=== PATIENT | male | born 1990 | race Caucasian/White ===

== ENCOUNTER → 2016-12-28 | Outpatient (CLI) | payer OTHER ==
--- NOTE | 2016-12-29 09:32 | MR ---
EXAMINATION: MRI of the right knee HISTORY: Derangement COMPARISON: 06/29/2016 TECHNIQUE: Multiplanar and multisequence images obtained of the right knee without contrast. FINDINGS: The patellar and quadriceps tendons are intact. The ACL and the PCL appear intact. There i s a large osteochondral defect noted within the lateral tibial plateau measuring approximately 1 x 1 .3 cm. There is likely a resulting loose body within the anterior joint space along the posterior as pect of Hoffa's fat pad. There is also adjacent cartilaginous defect measuring 1.8 cm posterior to t he defect which has from the underlying cortex but not displaced. Underlying subchondral e charles is noted. The body of the lateral meniscus is completely degenerated with preservation of a por tion of the posterior horn. The medial meniscus appears intact. The medial and lateral collateral li gament complexes appear intact. There is a trace joint effusion without significant Noel's cyst. IMPRESSION: 1. Large, grade 4, osteochondral defect along the lateral femoral condyle with a dislodged portion r esulting in a loose body within the anterior joint space. 2. Complete degeneration of the body of the lateral meniscus. 3. Small joint effusion.
== END ==
LOC: MW.MRI 13:59
PROVIDERS: ATTEND General Practice
DX: M23.3 Other meniscus derangements (principal); M25.461 Effusion, right knee
CPT/HCPCS: 73721-26-RT; 73721-RT

== ENCOUNTER 2017-01-10 09:22 | Day surgery (SDC) | payer OTHER ==
[~2017-01-10 09:22] MED LIST: Acetaminophen/HYDROcodone 325-5 MG Tab PO PRN; Lactated Ringers 1,000 ML IV SCH; Lidocaine 1% 50 ML MDV ONE; ceFAZolin 2 GM in Premix Bag 1 BAG IV SCH
--- NOTE | 2017-01-10 10:16 | PCM.PREANE ---
Preanesthetic Assessment - Anesthesia/Transfusion/Family Hx Anesthesia History: Prior Anesthesia Without Reaction Transfusion History: No Prior Transfusion(s) - Review of Systems General: No Symptoms Pulmonary: No Symptoms Cardiovascular: No Symptoms Gastrointestinal: No symptoms Neurological: No Symptoms Other: Reports: None - Physical Assessment NPO Status Date: 01/09/17 NPO Status Time: 22:00 O2 Sat by Pulse Oximetry: 97 Respiratory Rate: 18 Vital Signs: Last Vital Signs Temp 36.7 C 01/10/17 09:42 Pulse 68 01/10/17 09:42 Resp 18 01/10/17 09:42 BP 135/77 01/10/17 09:42 Pulse Ox 97 01/10/17 09:42 Height: 1.7 m Weight: 120.202 kg ASA Class: 2 Mental Status: Alert & Oriented x3 Airway Class: Mallampati = 2 Dentition: Reports: Normal Dentition ROM/Head Extension: Full Lungs: Clear to auscultation, Normal respiratory effort Cardiovascular: Regular Rate, Regular Rhythm - Allergies Allergies/Adverse Reactions: Allergies Allergy/AdvReac Type Severity Reaction Status Date / Time No Known Allergies Allergy Verified 01/08/17 11:06 - Anesthesia Plan Pre-Op Medication Ordered: None - Acknowledgements Anesthesia Type Planned: General Anesthesia Pt an Appropriate Candidate for the Planned Anesthesia: Yes Alternatives and Risks of Anesthesia Discussed w Pt/Guardian: Yes Pt/Guardian Understands and Agrees with Anesthesia Plan: Yes PreAnesthesia Questionnaire HEENT History: Reports: Allergic rhinitis Cardiovascular History: Reports: None Respiratory History: Reports: Asthma Gastrointestinal History: Reports: None Genitourinary History: Reports: None Musculoskeletal History: Reports: Fracture Other Musculoskeletal History: neck, clavicle, skull, right wrist, patella Neurological History: Reports: Concussion, Head trauma Other Neuro History: hx of fx skull, crushed C5 vertebrate Psychiatric History: Reports: None Endocrine/Metabolic History: Reports: Obesity/BMI 30+ Hematologic History: Reports: None Immunologic History: Reports: None Oncologic (Cancer) History: Reports: None Dermatologic History: Reports: None - Infectious Disease History Infectious Disease History: Reports: None - Past Surgical History Head Surgeries/Procedures: Reports: None HEENT Surgical History: Reports: None Cardiovascular Surgical History: Reports: None Respiratory Surgical History: Reports: None GI Surgical History: Reports: Appendectomy Male Surgical History: Reports: None Endocrine Surgical History: Reports: None Neurological Surgical History: Reports: C-Spine Other Neurological Surgeries/Procedures: fusion C4-5 Musculoskeletal Surgical History: Reports: Arthroscopic knee Other Musculoskeletal Surgeries/Procedures:: Right ankle arthroscopic Oncologic Surgical History: Reports: None Dermatological Surgical History: Reports: None - SUBSTANCE USE Smoking Status *Q: Former Smoker Tobacco Use Within Last Twelve Months: Cigarettes, Smokeless Tobacco Second Hand Smoke Exposure: No Days Per Week of Alcohol Use: 7 Number of Drinks Per Day: 4 Total Drinks Per Week: 28 Recreational Drug Use History: Yes Recreational Drug Type: Reports: Marijuana/Hashish - HOME MEDS Home Medications: Home Meds Fluticasone/Salmeterol [Advair 250-50] 250 mg INH BID 06/13/15 [History] Albuterol [Proventil HFA] 2 puff INH ASDIRECTED 08/13/15 [History] - CURRENT (IN HOUSE) MEDS Current Meds: Current Medications Hydrocodone Bitart/Acetaminophen ([place] 325-5 Mg) 1 - 2 tab PO Q4H PRN PRN Reason: Pain Lactated Ringer's (Ringers, Lactated) 1,000 mls @ 100 mls/hr IV ASDIRECTED [facility] Last Admin: 01/10/17 09:45 Dose: 100 mls/hr Cefazolin Sodium/Dextrose 2 gm (/ Premix) 50 mls @ 100 mls/hr IV ONCALL KENN Discontinued Medications Lidocaine HCl (Xylocaine 1%) Confirm Administered Dose 50 ml .ROUTE .STK-MED ONE Stop: 01/10/17 07:33 Preanesthetic Assessment - ANESTHESIA/TRANSFUSION/FAMILY HX Family History of Anesthesia Reaction: No - PHYSICAL ASSESSMENT O2 Sat by Pulse Oximetry: 97 RR: 18 Vital Signs: Last Vital Signs Temp 36.7 C 01/10/17 09:42 Pulse 68 01/10/17 09:42 Resp 18 01/10/17 09:42 BP 135/77 01/10/17 09:42 Pulse Ox 97 01/10/17 09:42 Height: 1.7 m Weight: 120.202 kg NPO Status Date: 01/09/17 NPO Status Time: 22:00 - ALLERGIES Allergies/Adverse Reactions: Allergies Allergy/AdvReac Type Severity Reaction Status Date / Time No Known Allergies Allergy Verified 01/08/17 11:06
[2017-01-10] MEDS ORDERED: Midazolam 1 MG/ML 2 ML SDV ONE (10:25)
[2017-01-10] MEDS ORDERED: fentaNYL 250 MCG/5 ML SDV ONE (10:25)
[2017-01-10] MEDS ORDERED: Lidocaine 2% 5 ML SDV ONE (10:25)
[2017-01-10] MEDS ORDERED: Propofol 200 MG/20 ML SDV ONE ×2 (10:25→12:31)
--- NOTE | 2017-01-10 11:21 | PCM.OPNOTE ---
- General Post-Op/Procedure Note Date of Surgery/Procedure: 01/10/17 Operative Procedure(s): R knee arthroscopy with excision of loose bodies (25mm x 20mm), (11mm x 15mm), (1mm x 4mm) and partial med/lat menisectomies Post-Op Diagnosis: R knee OCD lateral femoral condyle, med/lat meniscus tear, loose bodies Anesthesia Technique: General LMA Primary Surgeon: Carlie Moran Caregivers Homecare: Nela Ellis in mLs: 5 Condition: Good Free Text/Narrative:: tt=50 min #[id number]
[2017-01-10] MEDS ORDERED: HYDROmorphone 2 MG/ML Syringe IVPUSH ONE (12:09)
--- NOTE | 2017-01-10 13:17 | PCM.POSTAN ---
POST ANESTHESIA ASSESSMENT - MENTAL STATUS Mental Status: oriented, somnolent (Will be transported to [facility] soon.) - RESPIRATORY Respiratory Status: respiratory rate WNL, airway patent, O2 saturation stable - CARDIOVASCULAR CV Status: pulse rate WNL, blood pressure stable - GASTROINTESTINAL GI Status: no symptoms - POST OP HYDRATION Hydration Status: adequate & stable
[2017-01-10] MEDS: fentaNYL 100 MCG/2 ML SDV IVPUSH PRN ×2 (13:39→13:46)
[2017-01-10 15:16] VITALS: BP 137/77
--- NOTE | 2017-01-10 22:34 | OR ---
SURGEON: Carlie Moran MD DATE OF PROCEDURE: 01/10/2017 PREOPERATIVE DIAGNOSES: 1. Right knee osteochondral defect, lateral femoral condyle. 2. Right knee loose body. 3. Right knee lateral meniscus tear. POSTOPERATIVE DIAGNOSES: 1. Right knee lateral meniscus tear. 2. Right knee medial meniscus tear. 3. Right knee loose bodies (25 mm x 20 mm, 11 mm x 15 mm and 1 mm x 4 mm). PROCEDURES: Right knee arthroscopy with: 1. Excision of loose bodies. 2. Partial lateral and medial meniscectomies. CRIMP SETTER: Nela Ellis MD, PGY-2. ANESTHESIA: General. ESTIMATED BLOOD LOSS: 5 mL. TOURNIQUET TIME: 50 minutes. COMPLICATIONS: None. DVT PROPHYLAXIS: Not indicated. IMPLANTS USED: None. BRIEF HISTORY: Bharat is a 26-year-old male, who has had complaint of persistent right knee pain. He previously underwent a right knee arthroscopy with a partial meniscectomy in 2012. I do not have records from that time. The patient states that he was told he did have some damage to his cartilage in the lateral compartment. He had returned to full activity and did not have any knee pain until a work related injury on December 15, 2016. He did have an MRI, which did show an osteochondral defect of the lateral femoral condyle with evidence of a loose body. Tear of the lateral meniscus was also noted. He was having mechanical symptoms including locking. At that time, I recommended a right knee arthroscopy. I did discuss with him the option of removing the loose body versus fixation if it was amenable to fixation. The risks and goals of procedure were discussed with the patient and documented preoperatively. He agreed to proceed. DESCRIPTION OF PROCEDURE: The patient was properly identified and brought to the operating room. He was transferred from the OR cart and placed on the operating table in supine position. General anesthesia was administered. After adequate anesthesia was obtained, a well-padded tourniquet was applied to the right lower extremity. The right lower extremity was then prepped in standard fashion using ChloraPrep solution. It was then sterilely draped. A time-out was performed to ensure correct site and procedure. Preoperative antibiotics were given. The surgical site had been marked preoperatively. An Esmarch was used to exsanguinate the right lower extremity and the tourniquet was inflated to 250 mmHg. A lateral portal arthrotomy was established. Blunt trocar and cannula were introduced into the suprapatellar pouch. Camera, inflow, and outflow were assembled. The patellofemoral joint was visualized. No significant degenerative changes were noted. The patella appeared to track centrally. I extended down the lateral and medial gutter. No loose bodies were identified. I then entered the medial compartment. A medial portal arthrotomy was established. A blunt probe was inserted. The meniscus was probed. He was found to have a nondisplaced full-thickness tear of the posterior horn of the medial meniscus. This appeared unstable. Using a combination of biters and shaver, this was resected back to a stable remnant. The joint surfaces were inspected. 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 Minor degenerative changes were noted along the medial femoral condyle. I then entered the notch. Both the ACL and PCL were visualized and probed. They were covered with synovium, however, they were able to be probed and the ACL insertion onto the lateral femoral condyle was intact. Finally, I did the lateral compartment. A large loose body was present along the anterior aspect of the lateral compartment. This was inspected and found to be completely devoid of bony. A grasper was used to remove this from the medial portal. The lateral compartment was again entered. Extensive degenerative fraying of the entire lateral meniscus was noted. There was a large osteochondral defect present along the weightbearing portion of the lateral femoral condyle. There was a loose body noted along the posterior aspect of the defect. This was extensively probed. The loose body showed a very small amount of subchondral bone. The loose body also appeared to be smooth around the edges and did not josé nicely into the underlying bone. It is possible that this had been loose for a period of time. It did have some soft tissue attachment posteriorly, which allowed it not to become a free-floating body. Since there was no significant subchondral bone noted on the fragment, I did not feel that fixation of this would give adequate healing. The loose body also did not josé in nicely to the defect. I elected to remove the loose body. This was again removed without difficulty. The osteochondral defect was then inspected. It measured approximately 35 mm in medial to lateral width with 30 mm anterior to posterior width. It was approximately 10 mm in depth. There was some loose cartilage along the periphery and this was smoothed with the shaver. The lateral tibial plateau was also inspected. This showed diffuse grade 2 to grade 3 chondromalacia. The lateral meniscus was then probed. Extensive degenerative fraying was noted posteriorly. He had a very thin rim of remaining meniscus, this was unstable and degenerative. Using a combination of biters and shaver, a partial lateral meniscectomy was performed. The probe was again inserted and the remainder of the meniscus appeared intact. There was a very thin rim remaining along the posterior horn. Instruments were then removed from the knee. The portal sites were closed with 3-0 nylon. Lidocaine 1% was injected along the portal tracts. Xeroform gauze was placed over the wound and a bulky dressing was applied. The tourniquet was then deflated. He was awakened from his anesthetic and transferred back to the operating room cart. He was brought to recovery room in stable condition. All needle and sponge counts were correct. IWONA / MEHRAN /[id number]
== END 2017-01-10 15:10 | disposition home or self-care (01) ==
LOC: MW.SDS 09:22
PROVIDERS: ATTEND Orthopaedic Surgery
PROC: 0SBC4ZZ Excision of Right Knee Joint, Percutaneous Endoscopic Approach (ICD-10-PCS; principal; 2017-01-10)
PROC: 0SBC4ZZ Excision of Right Knee Joint, Percutaneous Endoscopic Approach (ICD-10-PCS; 2017-01-10)
DX: S83.241A Other tear of medial meniscus, current injury, right knee, initial encounter (principal); S83.281A Other tear of lateral meniscus, current injury, right knee, initial encounter; M94.261 Chondromalacia, right knee; M95.8 Other specified acquired deformities of musculoskeletal system; J45.909 Unspecified asthma, uncomplicated; E66.9 Obesity, unspecified; Z87.891 Personal history of nicotine dependence; Z79.51 Long term (current) use of inhaled steroids; Z79.899 Other long term (current) drug therapy; Z98.890 Other specified postprocedural states; Z90.49 Acquired absence of other specified parts of digestive tract; Z68.41 Body mass index [BMI] 40.0-44.9, adult
CPT/HCPCS: 29880; A9270; J2250; J3010; J7120; 01400; 88304; 88311; J2704

== ENCOUNTER 2018-05-04 01:45 | Emergency (ER) | payer SELFPAY ==
--- NOTE | 2018-05-04 02:48 | EDM.PDOC ---
ED HPI GENERAL MEDICAL PROBLEM - General Chief Complaint: General Stated Complaint: MEDICAL CLEARANCE Time Seen by Provider: 05/04/18 02:37 Source of Information: Reports: Patient History Limitations: Reports: No Limitations - History of Present Illness INITIAL COMMENTS - FREE TEXT/NARRATIVE: HISTORY AND PHYSICAL: History of present illness: 27-year-old male presenting department with law enforcement for medical clearance with past history of hypertension and asthma. Patient states that he takes a blood pressure pill but does not know the name on a daily basis. States that his friends are going to bring him the medication tomorrow in correction. He also takes an albuterol inhaler as well as Advair. States he has not used the Advair for some time. He is getting low on his albuterol rescue inhaler. He would like perscription for the albuterol inhaler. Denies any pain, chest pain, shortness of breath, palpitations, syncopal episodes, or focal neurologic deficits. Review of systems: As per history of present illness and below otherwise all systems reviewed and negative. Past medical history: As per history of present illness and as reviewed below otherwise noncontributory. Surgical history: As per history of present illness and as reviewed below otherwise noncontributory. Social history: No reported history of drug or alcohol abuse. Family history: As per history of present illness and as reviewed below otherwise noncontributory. Physical exam: HEENT: Atraumatic, normocephalic, pupils reactive, negative for conjunctival pallor or scleral icterus, mucous membranes moist, throat clear, neck supple, nontender, trachea midline. Lungs: Clear to auscultation, breath sounds equal bilaterally, chest nontender. Heart: S1S2, regular, negative for clicks, rubs, or JVD. Abdomen: Soft, nondistended, nontender. Negative for masses or hepatosplenomegaly. Negative for costovertebral tenderness. Pelvis: Stable nontender. Genitourinary: Deferred. Rectal: Deferred. Extremities: Atraumatic, negative for cords or calf pain. Neurovascular unremarkable. Neuro: Awake, alert, oriented. Cranial nerves II through XII unremarkable. Cerebellum unremarkable. Motor and sensory unremarkable throughout. Exam nonfocal. Diagnostics: [] Therapeutics: Albuterol inhaler Impression: Medical clearance History of asthma History of high blood pressure Plan: I did write a prescription for a rescue inhaler as the patient was getting low on his. States he does not need the Advair at this time and is going to follow- up with his primary care physician. He also is going to have his blood pressure pills brought him tomorrow in correction. He was discharged in good condition with instructions to return to emergency department if there are any new or worsening symptoms. Definitive disposition and diagnosis as appropriate pending reevaluation and review of above. - Related Data Allergies Allergy/AdvReac Type Severity Reaction Status Date / Time No Known Allergies Allergy Verified 05/04/18 02:00 Home Meds: Home Meds Fluticasone/Salmeterol [Advair 250-50] 250 mg INH BID 06/13/15 [History] Albuterol [Proventil HFA] 2 puff INH ASDIRECTED 08/13/15 [History] Past Medical History HEENT History: Reports: Allergic Rhinitis Cardiovascular History: Reports: None Respiratory History: Reports: Asthma Gastrointestinal History: Reports: None Genitourinary History: Reports: None Musculoskeletal History: Reports: Fracture Other Musculoskeletal History: neck, clavicle, skull, right wrist, patella Neurological History: Reports: Concussion, Head Trauma Other Neuro History: hx of fx skull, crushed C5 vertebrate Psychiatric History: Reports: None Endocrine/Metabolic History: Reports: Obesity/BMI 30+ Hematologic History: Reports: None Immunologic History: Reports: None Oncologic (Cancer) History: Reports: None Dermatologic History: Reports: None - Infectious Disease History Infectious Disease History: Reports: None - Past Surgical History Head Surgeries/Procedures: Reports: None Cardiovascular Surgical History: Reports: None Respiratory Surgical History: Reports: None GI Surgical History: Reports: Appendectomy Male Surgical History: Reports: None Endocrine Surgical History: Reports: None Musculoskeletal Surgical History: Reports: Arthroscopic Knee Oncologic Surgical History: Reports: None Dermatological Surgical History: Reports: None Social & Family History - Family History Family Medical History: Noncontributory Cardiac: Reports: [place] Respiratory: Reports: Asthma - Tobacco Use Smoking Status *Q: Never Smoker Second Hand Smoke Exposure: No - Caffeine Use Caffeine Use: Reports: None - Alcohol Use Days Per Week of Alcohol Use: 1 Number of Drinks Per Day: 6 Total Drinks Per Week: 6 - Recreational Drug Use Recreational Drug Use: Yes Recreational Drug Type: Reports: Marijuana/Hashish ED ROS GENERAL - Review of Systems Review Of Systems: ROS reveals no pertinent complaints other than HPI. ED EXAM, GENERAL - Physical Exam Exam: See Below Course - Vital Signs Last Recorded V/S: Last Vital Signs Temp 97.5 F 05/04/18 01:56 Pulse 116 H 05/04/18 01:56 Resp 20 05/04/18 01:56 BP 130/84 05/04/18 01:56 Pulse Ox 98 05/04/18 01:56 Departure - Departure Time of Disposition: 02:47 Disposition: Home, Self-Care 01 Condition: Good Clinical Impression: Medical clearance for incarceration, History of asthma, History of hypertension - Discharge Information *PRESCRIPTION DRUG MONITORING PROGRAM REVIEWED*: Not Applicable *COPY OF PRESCRIPTION DRUG MONITORING REPORT IN PATIENT ALONZO: Not Applicable Referrals: PCP,None [Primary Care Provider] - Additional Instructions: My general discharge The following information is given to patients seen in the emergency department who are being discharged to home. This information is to outline your options for follow-up care. We provide all patients seen in our emergency department with a follow-up referral. The need for follow-up, as well as the timing and circumstances, are variable depending upon the specifics of your emergency department visit. If you don't have a primary care physician on staff, we will provide you with a referral. We always advise you to contact your personal physician following an emergency department visit to inform them of the circumstance of the visit and for follow-up with them and/or the need for any referrals to a consulting specialist. The emergency department will also refer you to a specialist when appropriate. This referral assures that you have the opportunity for follow-up care with a specialist. All of these measure are taken in an effort to provide you with optimal care, which includes your follow-up. Under all circumstances we always encourage you to contact your private physician who remains a resource for coordinating your care. When calling for follow-up care, please make the office aware that this follow-up is from your recent emergency room visit. If for any reason you are refused follow-up, please contact the [facility] Emergency Department at and asked to speak to the emergency department charge nurse. [facility] [address] [place] [id number] Follow-up with her memory care physician for your Advair. Take your medications as prescribed. Return emergency department if any new or worsening symptoms.
[2018-05-04 02:59] VITALS: BP 135/85
== END 2018-05-04 02:55 | disposition home or self-care (01) ==
LOC: MW.ED 01:45
DX: Z02.9 Encounter for administrative examinations, unspecified (principal); J45.909 Unspecified asthma, uncomplicated; I10 Essential (primary) hypertension
CPT/HCPCS: 99282

== ENCOUNTER 2018-05-04 11:00 | Emergency (ER) | payer OTHER ==
[2018-05-04] MEDS ORDERED: methylPREDNISolone Sodium Succinate 125 MG/2 ML SDV IM ONE (11:02)
--- NOTE | 2018-05-04 11:17 | EDM.PDOC ---
ED HPI GENERAL MEDICAL PROBLEM - General Chief Complaint: Respiratory Problem Stated Complaint: SOB Time Seen by Provider: 05/04/18 11:02 Source of Information: Reports: Patient History Limitations: Reports: No Limitations - History of Present Illness INITIAL COMMENTS - FREE TEXT/NARRATIVE: HISTORY AND PHYSICAL: History of present illness: Patient is a 27-year-old male who is brought to the emergency room via ambulance from [facility] with c/o "asthma attack". Patient has been in custody of law enforcement since last evening; woke up this morning with shortness of breath, started to become anxious and felt he was having an asthma attack. EMS was called to scene and stated he was alert but appeared anxious and not able to verbally respond due to his SOB. Patient states he has improved since receiving the DuoNeb. Upon arrival patient is alert and oriented. Able to speak in full sentences without shortness of breath. He appears calm and collected. Law enforcement is at the bedside. He states prior to this "asthma attack" he has been of good health and has no other systemic complaints. Review of systems: As per history of present illness and below otherwise all systems reviewed and negative. Past medical history: As per history of present illness and as reviewed below otherwise noncontributory. Surgical history: As per history of present illness and as reviewed below otherwise noncontributory. Social history: No reported history of drug or alcohol abuse. Family history: As per history of present illness and as reviewed below otherwise noncontributory. Physical exam: General: Well-developed and well-nourished 27-year-old male. Alert and oriented. Nontoxic appearing and in no acute distress. HEENT: Atraumatic, normocephalic, pupils equal and reactive bilaterally, negative for conjunctival pallor or scleral icterus, mucous membranes moist, throat clear, neck supple, nontender, trachea midline. No drooling or trismus noted. No meningeal signs Lungs: Upper lobes are clear with slightly diminished bilateral bases, breath sounds equal bilaterally, chest nontender. No coughing noted. No work of breathing. Heart: S1S2, regular rate and rhythm without overt murmur Abdomen: Soft, nondistended, nontender. Negative for masses or hepatosplenomegaly. Negative for costovertebral tenderness. Pelvis: Stable nontender. Genitourinary: Deferred. Rectal: Deferred. Skin: Intact, warm, dry. No lesions or rashes noted. Extremities: Atraumatic, negative for cords or calf pain. Neurovascular unremarkable. Neuro: Awake, alert, oriented. Cranial nerves II through XII unremarkable. Cerebellum unremarkable. Motor and sensory unremarkable throughout. Exam nonfocal. Notes: Patient states that he normally does take a medication for hypertension but is unsure of the name and has not had this medicine for several days. Chest x-ray is unremarkable. Vital signs have improved. Patient states he is asymptomatic at this time. Supportive care measures were reviewed and discussed. He voices understanding and is agreeable to plan of care. He is released back into the custody of law enforcement at this time. Diagnostics: Chest x-ray Therapeutics: Solu-Medrol Impression: Asthma exacerbation Plan: 1. Please continue to use your inhaler as directed. 2. Follow-up with your primary care provider in the next 1-2 days. Return to the ED as needed and as discussed. Definitive disposition and diagnosis as appropriate pending reevaluation and review of above. Onset: Today Duration: Minutes: Location: Reports: Chest - Related Data Allergies Allergy/AdvReac Type Severity Reaction Status Date / Time No Known Allergies Allergy Verified 05/04/18 11:07 Home Meds: Home Meds Fluticasone/Salmeterol [Advair 250-50] 250 mg INH BID 06/13/15 [History] Albuterol [Proventil HFA] 2 puff INH ASDIRECTED 08/13/15 [History] Benazepril [Lotensin] 5 mg PO DAILY 05/04/18 [History] Past Medical History HEENT History: Reports: Allergic Rhinitis Cardiovascular History: Reports: None Respiratory History: Reports: Asthma Gastrointestinal History: Reports: None Genitourinary History: Reports: None Musculoskeletal History: Reports: Fracture Other Musculoskeletal History: neck, clavicle, skull, right wrist, patella Neurological History: Reports: Concussion, Head Trauma Other Neuro History: hx of fx skull, crushed C5 vertebrate Psychiatric History: Reports: None Endocrine/Metabolic History: Reports: Obesity/BMI 30+ Hematologic History: Reports: None Immunologic History: Reports: None Oncologic (Cancer) History: Reports: None Dermatologic History: Reports: None - Infectious Disease History Infectious Disease History: Reports: None - Past Surgical History Head Surgeries/Procedures: Reports: None Cardiovascular Surgical History: Reports: None Respiratory Surgical History: Reports: None GI Surgical History: Reports: Appendectomy Male Surgical History: Reports: None Endocrine Surgical History: Reports: None Musculoskeletal Surgical History: Reports: Arthroscopic Knee Oncologic Surgical History: Reports: None Dermatological Surgical History: Reports: None Social & Family History - Family History Family Medical History: Noncontributory Cardiac: Reports: [place] Respiratory: Reports: Asthma - Caffeine Use Caffeine Use: Reports: None ED ROS GENERAL - Review of Systems Review Of Systems: ROS reveals no pertinent complaints other than HPI. ED EXAM, GENERAL - Physical Exam Exam: See Below (See dictation) Course - Vital Signs Last Recorded V/S: Last Vital Signs Temp 98.2 F 05/04/18 11:08 Pulse 118 H 05/04/18 11:08 Resp 20 05/04/18 11:08 BP 154/100 H 05/04/18 11:08 Pulse Ox 93 L 05/04/18 11:08 - Orders/Labs/Meds Orders: Active Orders 24 hr Category Date Time Status Chest 2V [CR] Stat Exams 05/04/18 11:02 Taken Meds: Medications Discontinued Medications Generic Name Dose Route Start Last Admin Trade Name Freq PRN Reason Stop Dose Admin Methylprednisolone Sodium Succinate 125 mg 05/04/18 11:02 05/04/18 11:51 Solu-Medrol IM 05/04/18 11:03 125 mg ONETIME ONE Administration Departure - Departure Time of Disposition: 11:18 Disposition: Home, Self-Care 01 Clinical Impression: Asthma exacerbation Qualifiers: Asthma severity: mild Asthma persistence: intermittent Qualified Code(s): J45.21 - Mild intermittent asthma with (acute) exacerbation - Discharge Information Forms: ED Department Discharge Additional Instructions: The following information is given to patients seen in the emergency department who are being discharged to home. This information is to outline your options for follow-up care. We provide all patients seen in our emergency department with a follow-up referral. The need for follow-up, as well as the timing and circumstances, are variable depending upon the specifics of your emergency department visit. If you don't have a primary care physician on staff, we will provide you with a referral. We always advise you to contact your personal physician following an emergency department visit to inform them of the circumstance of the visit and for follow-up with them and/or the need for any referrals to a consulting specialist. The emergency department will also refer you to a specialist when appropriate. This referral assures that you have the opportunity for follow-up care with a specialist. All of these measure are taken in an effort to provide you with optimal care, which includes your follow-up. Under all circumstances we always encourage you to contact your private physician who remains a resource for coordinating your care. When calling for follow-up care, please make the office aware that this follow-up is from your recent emergency room visit. If for any reason you are refused follow-up, please contact the [facility] Emergency Department at and asked to speak to the emergency department charge nurse. [facility] [address] [place] [phone] 1. Please continue to use your inhaler as directed. 2. Follow-up with your primary care provider in the next 1-2 days. Return to the ED as needed and as discussed. - My Orders Last 24 Hours: My Active Orders 05/04/18 11:02 Chest 2V [CR] Stat - Assessment/Plan Last 24 Hours: My Active Orders 05/04/18 11:02 Chest 2V [CR] Stat
[2018-05-04 12:15] VITALS: BP 145/80
--- NOTE | 2018-05-06 11:43 | CR ---
EXAM DATE: 05/04/18 PATIENT'S AGE: 27 Patient: SEPIDEH SHEIKH Facility: [place], [place] Site . Site : 1990 Study: XRay Chest [id number]/21/2018 11:34:29 AM Ordering Physician: Doctor Basurto Final Report: INDICATION: Dyspnea, chest pain. TECHNIQUE: Chest 2 views. COMPARISON: None FINDINGS: Cardiovascular and mediastinum: Heart size and vasculature are normal in caliber and appearance. Mediastinum is within normal limits. Lungs and pleural spaces: Lungs are clear. No sign of infiltrate or mass. No sign of pleural effusion. No pneumothorax. Bones and soft tissues: No significant findings. IMPRESSION: Unremarkable chest. Dictated by Evgeny Daley MD @ May 04 2018 11:59AM (Electronic Signature) Report Signed by Proxy. GOMEZ
== END 2018-05-04 12:23 | disposition home or self-care (01) ==
LOC: MW.ED 11:00
DX: J45.21 Mild intermittent asthma with (acute) exacerbation (principal); E66.9 Obesity, unspecified; Z79.899 Other long term (current) drug therapy
CPT/HCPCS: 71046; 96372; 99284; J2930; 99283

== ENCOUNTER 2019-04-07 00:34 | Emergency (ER) | payer SELFPAY ==
--- NOTE | 2019-04-07 00:38 | EDM.PDOC ---
ED HPI GENERAL MEDICAL PROBLEM - General Chief Complaint: General Stated Complaint: POSSIBLE OD Time Seen by Provider: 04/07/19 00:36 - History of Present Illness INITIAL COMMENTS - FREE TEXT/NARRATIVE: HISTORY AND PHYSICAL: History of present illness: Patient 28-year-old white male with history of polysubstance abuse who was at a friend's house tonight using drugs and became unresponsive paramedics arrived patient was given Narcan 3 doses and responded he presents here with a color with no complaints Review of systems: As per history of present illness and below otherwise all systems reviewed and negative. Past medical history: As per history of present illness and as reviewed below otherwise noncontributory. Surgical history: As per history of present illness and as reviewed below otherwise noncontributory. Social history: No reported history of drug or alcohol abuse. Family history: As per history of present illness and as reviewed below otherwise noncontributory. Physical exam: HEENT: Atraumatic, normocephalic, pupils reactive, negative for conjunctival pallor or scleral icterus, mucous membranes moist, throat clear, neck supple, nontender, trachea midline. Lungs: Clear to auscultation, breath sounds equal bilaterally, chest nontender. Heart: S1S2, regular, negative for clicks, rubs, or JVD. Abdomen: Soft, nondistended, nontender. Negative for masses or hepatosplenomegaly. Negative for costovertebral tenderness. Pelvis: Stable nontender. Genitourinary: Deferred. Rectal: Deferred. Extremities: Atraumatic, negative for cords or calf pain. Neurovascular unremarkable. Neuro: Awake, alert, oriented. Cranial nerves II through XII unremarkable. Cerebellum unremarkable. Motor and sensory unremarkable throughout. Exam nonfocal. Diagnostics: CBC CMP troponin PT/INR chest x-ray EKG Therapeutics: IV O2 monitor Impression: #1 polysubstance abuse #2 observation status post narcotic overdose Definitive disposition and diagnosis as appropriate pending reevaluation and review of above. - Related Data Allergies Allergy/AdvReac Type Severity Reaction Status Date / Time No Known Allergies Allergy Verified 04/07/19 01:20 Home Meds: Home Meds Albuterol [Ventolin HFA] 1 puff INH Q4H PRN 09/09/18 [History] Past Medical History HEENT History: Reports: Allergic Rhinitis Cardiovascular History: Reports: Hypertension Other Cardiovascular History: not on medication Respiratory History: Reports: Asthma Gastrointestinal History: Reports: None Genitourinary History: Reports: None Musculoskeletal History: Reports: Fracture Other Musculoskeletal History: c5 fracture Neurological History: Reports: Concussion, Head Trauma Other Neuro History: c5 fracture Psychiatric History: Reports: Addiction, Anxiety, Depression Endocrine/Metabolic History: Reports: Obesity/BMI 30+ Hematologic History: Reports: None Immunologic History: Reports: None Oncologic (Cancer) History: Reports: None Dermatologic History: Reports: None - Infectious Disease History Infectious Disease History: Reports: None - Past Surgical History Head Surgeries/Procedures: Reports: None Cardiovascular Surgical History: Reports: None Respiratory Surgical History: Reports: None GI Surgical History: Reports: Appendectomy Male Surgical History: Reports: None Endocrine Surgical History: Reports: None Neurological Surgical History: Reports: Other (See Below) Other Neurological Surgeries/Procedures: c-5 fusion Musculoskeletal Surgical History: Reports: Arthroscopic Knee, Other (See Below) Other Musculoskeletal Surgeries/Procedures:: back surgery Oncologic Surgical History: Reports: None Dermatological Surgical History: Reports: None Social & Family History - Family History Family Medical History: Noncontributory Cardiac: Reports: [place] Respiratory: Reports: Asthma - Caffeine Use Caffeine Use: Reports: Soda ED ROS GENERAL - Review of Systems Review Of Systems: ROS reveals no pertinent complaints other than HPI. ED EXAM, GENERAL - Physical Exam Exam: See Below (See dictation) Course - Vital Signs Last Recorded V/S: Last Vital Signs Temp 36.6 C 04/07/19 00:34 Pulse 95 04/07/19 00:34 Resp 22 H 04/07/19 00:34 BP 148/88 H 04/07/19 00:34 Pulse Ox 98 04/07/19 00:34 - Orders/Labs/Meds Orders: Active Orders 24 hr Category Date Time Status EKG Documentation Completion [RC] STAT Care 04/07/19 00:40 Active DRUG SCREEN, URINE [URCHEM] Stat Lab 04/07/19 00:40 Ordered UA W/OFELIA RFLX IF INDICATED [URIN] Stat Lab 04/07/19 00:40 Ordered Labs: Laboratory Tests 04/07/19 04/07/19 04/07/19 Range/Units 00:50 00:50 00:50 WBC 17.86 H (4.0-11.0) K/uL RBC 5.00 (4.50-5.90) M/uL Hgb 15.4 (13.0-17.0) g/dL Hct 45.8 (38.0-50.0) % MCV 91.6 (80.0-98.0) fL MCH 30.8 (27.0-32.0) pg MCHC 33.6 (31.0-37.0) g/dL RDW Std Deviation 42.1 (28.0-62.0) fl RDW Coeff of Som 13 (11.0-15.0) % Plt Count 204 (150-400) K/uL MPV 10.40 (7.40-12.00) fL Neut % (Auto) 84.1 H (48.0-80.0) % Lymph % (Auto) 7.7 L (16.0-40.0) % [place] % (Auto) 5.3 (0.0-15.0) % Eos % (Auto) 2.8 (0.0-7.0) % Baso % (Auto) 0.1 (0.0-1.5) % Neut # (Auto) 15.0 H (1.4-5.7) K/uL Lymph # (Auto) 1.4 (0.6-2.4) K/uL [place] # (Auto) 1.0 H (0.0-0.8) K/uL Eos # (Auto) 0.5 (0.0-0.7) K/uL Baso # (Auto) 0.0 (0.0-0.1) K/uL INR 0.98 Sodium 140 (136-148) mmol/L Potassium 4.3 (3.5-5.1) mmol/L Chloride 101 (98-107) mmol/L Carbon Dioxide 29.5 (21.0-32.0) mmol/L BUN 13 (7.0-18.0) mg/dL Creatinine 1.3 (0.8-1.3) mg/dL Est Cr Clr Drug Dosing TNP Estimated GFR (MDRD) > 60.0 ml/min Glucose 140 H (74-106) mg/dL Calcium 9.0 (8.5-10.1) mg/dL Total Bilirubin 0.7 (0.2-1.0) mg/dL AST 43 H (15-37) IU/L ALT 60 (14-63) IU/L Alkaline Phosphatase 52 (46-116) U/L Troponin I < 0.050 (0.000-0.056) ng/mL Total Protein 7.6 (6.4-8.2) g/dL Albumin 3.8 (3.4-5.0) g/dL Globulin 3.8 (2.6-4.0) g/dL Albumin/Globulin Ratio 1.0 (0.9-1.6) Departure - Departure Time of Disposition: 01:50 Disposition: Home, Self-Care 01 Condition: Good Clinical Impression: Narcotic overdose - Discharge Information Forms: ED Department Discharge Additional Instructions: The following information is given to patients seen in the emergency department who are being discharged to home. This information is to outline your options for follow-up care. We provide all patients seen in our emergency department with a follow-up referral. The need for follow-up, as well as the timing and circumstances, are variable depending upon the specifics of your emergency department visit. If you don't have a primary care physician on staff, we will provide you with a referral. We always advise you to contact your personal physician following an emergency department visit to inform them of the circumstance of the visit and for follow-up with them and/or the need for any referrals to a consulting specialist. The emergency department will also refer you to a specialist when appropriate. This referral assures that you have the opportunity for followup care with a specialist. All of these measure are taken in an effort to provide you with optimal care, which includes your followup. Under all circumstances we always encourage you to contact your private physician who remains a resource for coordinating your care. When calling for followup care, please make the office aware that this follow-up is from your recent emergency room visit. If for any reason you are refused follow-up, please contact the [facility] emergency department at and asked to speak to the emergency department charge nurse. Stop using drugs follow-up primary medical doctor as needed as discussed and return as needed as discussed - My Orders Last 24 Hours: My Active Orders 04/07/19 00:40 EKG Documentation Completion [RC] STAT DRUG SCREEN, URINE [URCHEM] Stat UA W/OFELIA RFLX IF INDICATED [URIN] Stat - Assessment/Plan Last 24 Hours: My Active Orders 04/07/19 00:40 EKG Documentation Completion [RC] STAT DRUG SCREEN, URINE [URCHEM] Stat UA W/OFELIA RFLX IF INDICATED [URIN] Stat
[2019-04-07 01:38] LABS: CHLORIDE,CL 101 mmol/L (98-107); SODIUM,NA 140 mmol/L (136-148)
--- NOTE | 2019-04-07 01:47 | CR ---
Indication: Unresponsive Technique: Chest 1 view Comparison: October 10, 2018 Findings/Impression: Normal cardiomediastinal silhouette. Minimal patchy opacity at the right lung base may reflect atelectasis, infection, or aspiration. No pneumothorax or effusion. No acute osseous abnormality. Dictated by Frida Denson MD @ Apr 07 2019 1:44AM Signed by Dr. Frida Denson @ Apr 07 2019 1:44AM
[2019-04-07 02:07] VITALS: BP 118/49
== END 2019-04-07 02:07 | disposition home or self-care (01) ==
LOC: MW.ED 00:34
DX: T40.601A Poisoning by unspecified narcotics, accidental (unintentional), initial encounter (principal); F19.10 Other psychoactive substance abuse, uncomplicated; I10 Essential (primary) hypertension; J45.909 Unspecified asthma, uncomplicated; E66.9 Obesity, unspecified; Z98.1 Arthrodesis status; Z90.49 Acquired absence of other specified parts of digestive tract
CPT/HCPCS: 36415; 71045; 71045-26; 80053; 84484; 85025; 85610; 93005; 99283; 99285-25

== ENCOUNTER 2019-08-09 03:55 | Emergency (ER) | payer SELFPAY ==
[2019-08-09] MEDS ORDERED: Sodium Chloride 0.9% 1,000 ML IV ONE (04:03)
[2019-08-09] MEDS ORDERED: Aspirin 81 MG Tab.Chew PO ONE (04:03)
[2019-08-09 04:29] LABS: BLOOD UREA NITROGEN,BUN 12 mg/dL (7.0-18.0); CARBON DIOXIDE,CO2 22.7 mmol/L (21.0-32.0); CHLORIDE,CL 100 mmol/L (98-107); GLUCOSE RANDOM 129 mg/dL (74-106); POTASSIUM,K 3.2 mmol/L (3.5-5.1); SODIUM,NA 139 mmol/L (136-148)
--- NOTE | 2019-08-09 04:52 | CR ---
INDICATION: Chest pain TECHNIQUE: Chest 1 views COMPARISON: Chest x-ray 04/07/2019 FINDINGS: Cardiovascular and mediastinum: Heart size and vasculature are normal in caliber and appearance. Lungs and pleural spaces: Lungs are clear. No sign of infiltrate or mass. No sign of pleural effusion. No pneumothorax. Bones and soft tissues: No significant findings. IMPRESSION: No acute findings and no significant changes from the prior exam. Dictated by Johnie Early MD @ Aug 09 2019 4:51AM Signed by Dr. Johnie Early @ Aug 09 2019 4:51AM
[2019-08-09 05:34] VITALS: BP 168/81; PULSE 118
--- NOTE | 2019-08-09 05:52 | EDM.PDOC ---
ED HPI GENERAL MEDICAL PROBLEM - General Chief Complaint: Chest Pain Stated Complaint: CHEST PAIN Time Seen by Provider: 08/09/19 05:53 - History of Present Illness INITIAL COMMENTS - FREE TEXT/NARRATIVE: HISTORY AND PHYSICAL: History of present illness: Patient 28-year-old white male who presents with a concern of chest pain after using cocaine tonight. His history of polysubstance abuse there is no sutures of breath palpitations nausea vomiting other concern Review of systems: As per history of present illness and below otherwise all systems reviewed and negative. Past medical history: As per history of present illness and as reviewed below otherwise noncontributory. Surgical history: As per history of present illness and as reviewed below otherwise noncontributory. Social history: No reported history of drug or alcohol abuse. Family history: As per history of present illness and as reviewed below otherwise noncontributory. Physical exam: HEENT: Atraumatic, normocephalic, pupils reactive, negative for conjunctival pallor or scleral icterus, mucous membranes moist, throat clear, neck supple, nontender, trachea midline. Lungs: Clear to auscultation, breath sounds equal bilaterally, chest nontender. Heart: S1S2, regular, negative for clicks, rubs, or JVD. Abdomen: Soft, nondistended, nontender. Negative for masses or hepatosplenomegaly. Negative for costovertebral tenderness. Pelvis: Stable nontender. Genitourinary: Deferred. Rectal: Deferred. Extremities: Atraumatic, negative for cords or calf pain. Neurovascular unremarkable. Neuro: Awake, alert, oriented. Cranial nerves II through XII unremarkable. Cerebellum unremarkable. Motor and sensory unremarkable throughout. Exam nonfocal. Diagnostics: CBC CMP troponin PT/INR chest x-ray EKG Therapeutics: IV O2 monitor Impression: #1 atypical chest pain #2 polysubstance abuse Definitive disposition and diagnosis as appropriate pending reevaluation and review of above. Chest Pain Score (Numeric/FACES): 5 - Related Data Allergies Allergy/AdvReac Type Severity Reaction Status Date / Time No Known Allergies Allergy Verified 08/09/19 04:04 Home Meds: Home Meds Fluticasone/Salmeterol [Advair 100-50] 1 puff INH BID 08/09/19 [History] Past Medical History HEENT History: Reports: Allergic Rhinitis Cardiovascular History: Reports: Hypertension Other Cardiovascular History: not on medication Respiratory History: Reports: Asthma Gastrointestinal History: Reports: None Genitourinary History: Reports: None Musculoskeletal History: Reports: Fracture Other Musculoskeletal History: c5 fracture Neurological History: Reports: Concussion, Head Trauma Other Neuro History: c5 fracture Psychiatric History: Reports: Addiction, Anxiety, Depression Endocrine/Metabolic History: Reports: Obesity/BMI 30+ Hematologic History: Reports: None Immunologic History: Reports: None Oncologic (Cancer) History: Reports: None Dermatologic History: Reports: None - Infectious Disease History Infectious Disease History: Reports: None - Past Surgical History Head Surgeries/Procedures: Reports: None Cardiovascular Surgical History: Reports: None Respiratory Surgical History: Reports: None GI Surgical History: Reports: Appendectomy Male Surgical History: Reports: None Endocrine Surgical History: Reports: None Neurological Surgical History: Reports: Other (See Below) Other Neurological Surgeries/Procedures: c-5 fusion Musculoskeletal Surgical History: Reports: Arthroscopic Knee, Other (See Below) Other Musculoskeletal Surgeries/Procedures:: back surgery Oncologic Surgical History: Reports: None Dermatological Surgical History: Reports: None Social & Family History - Family History Family Medical History: Noncontributory Cardiac: Reports: Bypass, [place] Respiratory: Reports: Asthma - Tobacco Use Smoking Status *Q: Current Some Day Smoker Years of Tobacco use: 10 Packs/Tins Daily: 0.1 - Caffeine Use Caffeine Use: Reports: Soda - Recreational Drug Use Recreational Drug Use: Yes Drug Use in Last 12 Months: Yes Recreational Drug Type: Reports: Cocaine Recreational Drug Use Frequency: Weekly ED ROS GENERAL - Review of Systems Review Of Systems: ROS reveals no pertinent complaints other than HPI. ED EXAM, GENERAL - Physical Exam Exam: See Below (See dictation) Course - Vital Signs Last Recorded V/S: Last Vital Signs Temp 36.0 C 08/09/19 04:01 Pulse 118 H 08/09/19 05:33 Resp 16 08/09/19 05:33 BP 168/81 H 08/09/19 05:33 Pulse Ox 98 08/09/19 05:33 - Orders/Labs/Meds Orders: Active Orders 24 hr Category Date Time Status Cardiac Monitoring [RC] . DIRECTED Care 08/09/19 04:04 Active EKG Documentation Completion [RC] STAT Care 08/09/19 04:05 Active POC Glucose [Blood Glucose Check, Bedside] [RC] ONETIME Care 08/09/19 04:10 Active Labs: Laboratory Tests 08/09/19 08/09/19 08/09/19 Range/Units 03:55 03:55 03:55 WBC 12.49 H (4.0-11.0) K/uL RBC 5.14 (4.50-5.90) M/uL Hgb 16.2 (13.0-17.0) g/dL Hct 46.9 (38.0-50.0) % MCV 91.2 (80.0-98.0) fL MCH 31.5 (27.0-32.0) pg MCHC 34.5 (31.0-37.0) g/dL RDW Std Deviation 43.0 (28.0-62.0) fl RDW Coeff of Som 13 (11.0-15.0) % Plt Count 280 (150-400) K/uL MPV 10.70 (7.40-12.00) fL Neut % (Auto) 59.4 (48.0-80.0) % Lymph % (Auto) 30.4 (16.0-40.0) % [place] % (Auto) 7.5 (0.0-15.0) % Eos % (Auto) 2.5 (0.0-7.0) % Baso % (Auto) 0.2 (0.0-1.5) % Neut # (Auto) 7.4 H (1.4-5.7) K/uL Lymph # (Auto) 3.8 H (0.6-2.4) K/uL [place] # (Auto) 0.9 H (0.0-0.8) K/uL Eos # (Auto) 0.3 (0.0-0.7) K/uL Baso # (Auto) 0.0 (0.0-0.1) K/uL Nucleated RBC % 0.0 /100WBC Nucleated RBCs # 0 K/uL INR 1.00 Sodium 139 (136-148) mmol/L Potassium 3.2 L (3.5-5.1) mmol/L Chloride 100 (98-107) mmol/L Carbon Dioxide 22.7 (21.0-32.0) mmol/L BUN 12 (7.0-18.0) mg/dL Creatinine 1.1 (0.8-1.3) mg/dL Est Cr Clr Drug Dosing 95.14 mL/min Estimated GFR (MDRD) > 60.0 ml/min Glucose 129 H (74-106) mg/dL Calcium 9.3 (8.5-10.1) mg/dL Total Bilirubin 0.8 (0.2-1.0) mg/dL AST 33 (15-37) IU/L ALT 51 (14-63) IU/L Alkaline Phosphatase 54 (46-116) U/L Troponin I < 0.050 (0.000-0.056) ng/mL Total Protein 8.7 H (6.4-8.2) g/dL Albumin 4.6 (3.4-5.0) g/dL Globulin 4.1 H (2.6-4.0) g/dL Albumin/Globulin Ratio 1.1 (0.9-1.6) Urine Color Urine Appearance Urine pH (5.0-8.0) Ur Specific [place] (1.001-1.035) Urine Protein (NEGATIVE) mg/dL Urine Glucose (UA) (NEGATIVE) mg/dL Urine Ketones (NEGATIVE) mg/dL Urine Occult Blood (NEGATIVE) Urine Nitrite (NEGATIVE) Urine Bilirubin (NEGATIVE) Urine Urobilinogen (<2.0) EU/dL Ur Leukocyte Esterase (NEGATIVE) Urine Opiates Screen (NEGATIVE) Ur Oxycodone Screen (NEGATIVE) Urine Methadone Screen (NEGATIVE) Ur Barbiturates Screen (NEGATIVE) Ur Phencyclidine Scrn (NEGATIVE) Ur Amphetamine Screen (NEGATIVE) U Methamphetamines Scrn (NEGATIVE) U Benzodiazepines Scrn (NEGATIVE) U Cocaine Metab Screen (NEGATIVE) U Marijuana (THC) Screen (NEGATIVE) 08/09/19 08/09/19 Range/Units 05:00 05:00 WBC (4.0-11.0) K/uL RBC (4.50-5.90) M/uL Hgb (13.0-17.0) g/dL Hct (38.0-50.0) % MCV (80.0-98.0) fL MCH (27.0-32.0) pg MCHC (31.0-37.0) g/dL RDW Std Deviation (28.0-62.0) fl RDW Coeff of Som (11.0-15.0) % Plt Count (150-400) K/uL MPV (7.40-12.00) fL Neut % (Auto) (48.0-80.0) % Lymph % (Auto) (16.0-40.0) % [place]eman % (Auto) (0.0-15.0) % Eos % (Auto) (0.0-7.0) % Baso % (Auto) (0.0-1.5) % Neut # (Auto) (1.4-5.7) K/uL Lymph # (Auto) (0.6-2.4) K/uL Hardeman # (Auto) (0.0-0.8) K/uL Eos # (Auto) (0.0-0.7) K/uL Baso # (Auto) (0.0-0.1) K/uL Nucleated RBC % /100WBC Nucleated RBCs # K/uL INR Sodium (136-148) mmol/L Potassium (3.5-5.1) mmol/L Chloride (98-107) mmol/L Carbon Dioxide (21.0-32.0) mmol/L BUN (7.0-18.0) mg/dL Creatinine (0.8-1.3) mg/dL Est Cr Clr Drug Dosing mL/min Estimated GFR (MDRD) ml/min Glucose (74-106) mg/dL Calcium (8.5-10.1) mg/dL Total Bilirubin (0.2-1.0) mg/dL AST (15-37) IU/L ALT (14-63) IU/L Alkaline Phosphatase (46-116) U/L Troponin I (0.000-0.056) ng/mL Total Protein (6.4-8.2) g/dL Albumin (3.4-5.0) g/dL Globulin (2.6-4.0) g/dL Albumin/Globulin Ratio (0.9-1.6) Urine Color YELLOW Urine Appearance CLEAR Urine pH 6.0 (5.0-8.0) Ur Specific [place] 1.025 (1.001-1.035) Urine Protein NEGATIVE (NEGATIVE) mg/dL Urine Glucose (UA) NEGATIVE (NEGATIVE) mg/dL Urine Ketones NEGATIVE (NEGATIVE) mg/dL Urine Occult Blood NEGATIVE (NEGATIVE) Urine Nitrite NEGATIVE (NEGATIVE) Urine Bilirubin NEGATIVE (NEGATIVE) Urine Urobilinogen 0.2 (<2.0) EU/dL Ur Leukocyte Esterase NEGATIVE (NEGATIVE) Urine Opiates Screen NEGATIVE (NEGATIVE) Ur Oxycodone Screen NEGATIVE (NEGATIVE) Urine Methadone Screen NEGATIVE (NEGATIVE) Ur Barbiturates Screen NEGATIVE (NEGATIVE) Ur Phencyclidine Scrn NEGATIVE (NEGATIVE) Ur Amphetamine Screen POSITIVE (NEGATIVE) U Methamphetamines Scrn POSITIVE (NEGATIVE) U Benzodiazepines Scrn NEGATIVE (NEGATIVE) U Cocaine Metab Screen POSITIVE (NEGATIVE) U Marijuana (THC) Screen POSITIVE (NEGATIVE) Meds: Medications Discontinued Medications Generic Name Dose Route Start Last Admin Trade Name Raimundo PRN Reason Stop Dose Admin Aspirin 324 mg 08/09/19 04:03 08/09/19 04:08 Aspirin PO 08/09/19 04:04 324 mg ONETIME ONE Administration Sodium Chloride 1,000 mls @ 999 mls/hr 08/09/19 04:03 08/09/19 04:08 Normal Saline IV 08/09/19 05:03 999 mls/hr STAT ONE Administration Departure - Departure Time of Disposition: 05:46 Disposition: Home, Self-Care 01 Condition: Good Clinical Impression: Atypical chest pain, Substance abuse - Discharge Information Additional Instructions: The following information is given to patients seen in the emergency department who are being discharged to home. This information is to outline your options for follow-up care. We provide all patients seen in our emergency department with a follow-up referral. The need for follow-up, as well as the timing and circumstances, are variable depending upon the specifics of your emergency department visit. If you don't have a primary care physician on staff, we will provide you with a referral. We always advise you to contact your personal physician following an emergency department visit to inform them of the circumstance of the visit and for follow-up with them and/or the need for any referrals to a consulting specialist. The emergency department will also refer you to a specialist when appropriate. This referral assures that you have the opportunity for followup care with a specialist. All of these measure are taken in an effort to provide you with optimal care, which includes your followup. Under all circumstances we always encourage you to contact your private physician who remains a resource for coordinating your care. When calling for followup care, please make the office aware that this follow-up is from your recent emergency room visit. If for any reason you are refused follow-up, please contact the [facility] emergency department at and asked to speak to the emergency department charge nurse. Stop using drugs follow-up primary medical doctor return as needed as discussed - My Orders Last 24 Hours: My Active Orders 08/09/19 04:04 Cardiac Monitoring [RC] . DIRECTED 08/09/19 04:05 EKG Documentation Completion [RC] STAT 08/09/19 04:10 POC Glucose [Blood Glucose Check, Bedside] [RC] ONETIME - Assessment/Plan Last 24 Hours: My Active Orders 08/09/19 04:04 Cardiac Monitoring [RC] . DIRECTED 08/09/19 04:05 EKG Documentation Completion [RC] STAT 08/09/19 04:10 POC Glucose [Blood Glucose Check, Bedside] [RC] ONETIME
== END 2019-08-09 06:02 | disposition home or self-care (01) ==
LOC: MW.ED 03:55
DX: F19.10 Other psychoactive substance abuse, uncomplicated (principal); R07.89 Other chest pain; I10 Essential (primary) hypertension; J45.909 Unspecified asthma, uncomplicated; F17.210 Nicotine dependence, cigarettes, uncomplicated; E66.9 Obesity, unspecified; Z68.41 Body mass index [BMI] 40.0-44.9, adult; Z79.51 Long term (current) use of inhaled steroids
CPT/HCPCS: 36415; 71045; 80053; 80305; 81003; 84484; 85025; 85610; 93005; 96360; 96361; 99285; A9270; J7040; 99283

== ENCOUNTER 2019-09-25 11:06 | Emergency (ER) | payer SELFPAY ==
[2019-09-25] MEDS ORDERED: LORazepam 2 MG/ML SDV IVPUSH ONE (11:08)
[2019-09-25] MEDS ORDERED: Sodium Chloride 0.9% 1,000 ML IV ONE (11:08)
[2019-09-25] MEDS ORDERED: Ondansetron 4 MG/2 ML SDV IVPUSH ONE (11:09)
--- NOTE | 2019-09-25 11:10 | EDM.PDOC ---
ED HPI GENERAL MEDICAL PROBLEM - General Stated Complaint: CHEST PAIN Time Seen by Provider: 09/25/19 11:08 Source of Information: Reports: Patient History Limitations: Reports: No Limitations - History of Present Illness INITIAL COMMENTS - FREE TEXT/NARRATIVE: HISTORY AND PHYSICAL: History of present illness: Patient is a 28 year old male who presents to the ED with c/o chest pain and anxiety for the past 24-48 hours. Patient states he has been drinking alcohol, snorting cocaine, smoking fentanyl and methamphetamine "for awhile" but reports last use was this morning at 5am. He called an ambulance this afternoon because he was concerned he was having a "heart attack at 5 this morning". He thought that by using more drugs, it would help calm his anxiety. Currently chest pain free, c/o nausea and anxiety. Patient denies any fever, chills, headache, change in vision, syncope or near syncope. Denies any back pain, shortness of breath or cough. Denies any abdominal pain, vomiting, diarrhea, constipation or dysuria. Has not noted any blood in urine or stool. Patient has been eating and drinking appropriately. Review of systems: As per history of present illness and below otherwise all systems reviewed and negative. Past medical history: As per history of present illness and as reviewed below otherwise noncontributory. Surgical history: As per history of present illness and as reviewed below otherwise noncontributory. Social history: See social history for further information Family history: As per history of present illness and as reviewed below otherwise noncontributory. Physical exam: General: Well developed and well nourished 28 year old male. Alert and orientated x 3. Avoids eye contact, nontoxic appearing and in no acute distress. HEENT: Atraumatic, normocephalic, pupils equal and reactive bilaterally, negative for conjunctival pallor or scleral icterus, mucous membranes moist, TMs normal bilaterally, throat clear, neck supple, nontender, trachea midline. No drooling or trismus noted. No meningeal signs. No hot potato voice noted. Lungs: Clear to auscultation, breath sounds equal bilaterally, chest nontender. Heart: S1S2, regular rate and rhythm without overt murmur Abdomen: Soft, nondistended, nontender. Negative for masses or hepatosplenomegaly. Negative for costovertebral tenderness. Pelvis: Stable nontender. Skin: Frequent sores noted throughout body. No AC injection site infections noted. Otherwise skin is intact, warm, dry. No lesions or rashes noted. Extremities: Atraumatic, moves all extremities per self without difficulty or deficits, negative for cords or calf pain. Neurovascular unremarkable. Neuro: Awake, alert, oriented. Cranial nerves II through XII unremarkable. Cerebellum unremarkable. Motor and sensory unremarkable throughout. Exam nonfocal. Notes: Patient refuses to give urine sample. His vital signs are stable. He has been sleeping for most of his ER visit. He has been woken up a few times for assessments and continues to be chest pain free. VSS. EKG reviewed by myself and Dr Panchal. Diagnostics were shared with patient. Vital signs remain stable, HR 80-90's. Continues to be chest pain free. Drug abuse education was reviewed with patient , has no interest in alcohol or drug treatment programs. He declines wanting admission. Continues to be A&O x 3 and answering questions appropriately. Discussed with patient and law enforcement supportive care measures. Voices understanding and is agreeable to plan of care. Denies any further questions or concerns at this time. Diagnostics: CBC, CMP, UA, Drug Screen, CPK, Troponin, EKG, CXR Therapeutics: IV fluids, Zofran, Ativan Prescription: None Impression: Polysubstance Abuse Plan: 1. STOP USING DRUGS 2. Follow up with your primary care provider 3. Return to the ED as needed as discussed. Definitive disposition and diagnosis as appropriate pending reevaluation and review of above. chest Pain Score (Numeric/FACES): 7 - Related Data Allergies Allergy/AdvReac Type Severity Reaction Status Date / Time No Known Allergies Allergy Verified 02/22/19 07:55 MDT Home Meds: Home Meds Albuterol Sulfate [Proair Hfa] 2 puff INH ASDIRECTED PRN 02/22/19 [History] Albuterol [Ventolin HFA] 1 - 2 puff INH Q4H PRN #1 mdi 02/22/19 [Rx] Fluticasone/Salmeterol [Advair 250-50] 1 puff INH BID 02/22/19 [History] predniSONE [Prednisone] 2 tab PO QAM #6 tablet 02/22/19 [Rx] Past Medical History Respiratory History: Reports: Asthma (never tested, but likely) Gastrointestinal History: Reports: Pancreatitis (possible, alcohol-related) Musculoskeletal History: Reports: Fracture (C5) Psychiatric History: Reports: Anxiety (untreated), Depression (untreated) Endocrine/Metabolic History: Reports: Obesity/BMI 30+ - Past Surgical History HEENT Surgical History: Reports: Myringotomy w Tube(s) GI Surgical History: Reports: Appendectomy Neurological Surgical History: Reports: C-Spine (C4-C5 posterior fusion) Musculoskeletal Surgical History: Reports: Other (See Below) (Right ACL repair) Social & Family History - Caffeine Use Caffeine Use: Reports: None - Living Situation & Occupation Living situation: Reports: Single, with Family Occupation: Employed ([employer]) ED ROS GENERAL - Review of Systems Review Of Systems: Comprehensive ROS is negative, except as noted in HPI. ED EXAM, GENERAL - Physical Exam Exam: See Below (See dictation) Course - Vital Signs Last Recorded V/S: Last Vital Signs Temp 97.0 F 09/25/19 12:52 Pulse 91 09/25/19 12:52 Resp 16 09/25/19 12:52 BP 126/74 09/25/19 12:52 Pulse Ox 93 L 09/25/19 12:52 - Orders/Labs/Meds Orders: Active Orders 24 hr Category Date Time Status EKG Documentation Completion [RC] STAT Care 09/25/19 11:09 Active Labs: Laboratory Tests 09/25/19 09/25/19 Range/Units 11:05 11:05 WBC 10.67 (4.0-11.0) K/uL RBC 5.25 (4.50-5.90) M/uL Hgb 16.3 (13.0-17.0) g/dL Hct 48.2 (38.0-50.0) % MCV 91.8 (80.0-98.0) fL MCH 31.0 (27.0-32.0) pg MCHC 33.8 (31.0-37.0) g/dL RDW Std Deviation 42.3 (28.0-62.0) fl RDW Coeff of Som 13 (11.0-15.0) % Plt Count 259 (150-400) K/uL MPV 11.00 (7.40-12.00) fL Neut % (Auto) 63.5 (48.0-80.0) % Lymph % (Auto) 22.8 (16.0-40.0) % [place] % (Auto) 7.8 (0.0-15.0) % Eos % (Auto) 5.6 (0.0-7.0) % Baso % (Auto) 0.3 (0.0-1.5) % Neut # (Auto) 6.8 H (1.4-5.7) K/uL Lymph # (Auto) 2.4 (0.6-2.4) K/uL [place] # (Auto) 0.8 (0.0-0.8) K/uL Eos # (Auto) 0.6 (0.0-0.7) K/uL Baso # (Auto) 0.0 (0.0-0.1) K/uL Nucleated RBC % 0.0 /100WBC Nucleated RBCs # 0 K/uL Sodium 139 (136-148) mmol/L Potassium 4.1 (3.5-5.1) mmol/L Chloride 104 (98-107) mmol/L Carbon Dioxide 25.4 (21.0-32.0) mmol/L BUN 13 (7.0-18.0) mg/dL Creatinine 1.0 (0.8-1.3) mg/dL Est Cr Clr Drug Dosing 104.66 mL/min Estimated GFR (MDRD) > 60.0 ml/min Glucose 126 H (74-106) mg/dL Calcium 9.0 (8.5-10.1) mg/dL Total Bilirubin 0.5 (0.2-1.0) mg/dL AST 22 (15-37) IU/L ALT 53 (14-63) IU/L Alkaline Phosphatase 55 (46-116) U/L Creatine Kinase 87 (26-308) U/L Troponin I < 0.050 (0.000-0.056) ng/mL Total Protein 7.9 (6.4-8.2) g/dL Albumin 4.0 (3.4-5.0) g/dL Globulin 3.9 (2.6-4.0) g/dL Albumin/Globulin Ratio 1.0 (0.9-1.6) Meds: Medications Discontinued Medications Generic Name Dose Route Start Last Admin Trade Name Freq PRN Reason Stop Dose Admin Sodium Chloride 1,000 mls @ 999 mls/hr 09/25/19 11:08 12/12/19 11:20 Normal Saline IV 09/25/19 12:08 999 mls/hr STAT ONE Administration Lorazepam 2 mg 09/25/19 11:08 09/25/19 11:21 Ativan IVPUSH 09/25/19 11:09 2 mg ONETIME ONE Administration Ondansetron HCl 4 mg 09/25/19 11:09 09/25/19 11:21 Zofran IVPUSH 09/25/19 11:10 4 mg ONETIME ONE Administration Departure - Departure Time of Disposition: 12:31 Disposition: Home, Self-Care 01 Clinical Impression: Polysubstance abuse - Discharge Information Instructions: Substance Use Disorder Referrals: PCP,None [Primary Care Provider] - Forms: ED Department Discharge Additional Instructions: The following information is given to patients seen in the emergency department who are being discharged to home. This information is to outline your options for follow-up care. We provide all patients seen in our emergency department with a follow-up referral. The need for follow-up, as well as the timing and circumstances, are variable depending upon the specifics of your emergency department visit. If you don't have a primary care physician on staff, we will provide you with a referral. We always advise you to contact your personal physician following an emergency department visit to inform them of the circumstance of the visit and for follow-up with them and/or the need for any referrals to a consulting specialist. The emergency department will also refer you to a specialist when appropriate. This referral assures that you have the opportunity for follow-up care with a specialist. All of these measure are taken in an effort to provide you with optimal care, which includes your follow-up. Under all circumstances we always encourage you to contact your private physician who remains a resource for coordinating your care. When calling for follow-up care, please make the office aware that this follow-up is from your recent emergency room visit. If for any reason you are refused follow-up, please contact the [facility] Emergency Department at and asked to speak to the emergency department charge nurse. [facility] [address] [place] [id number] [facility] [address] [place] [address] 1. STOP USING DRUGS 2. Follow up with your primary care provider 3. Return to the ED as needed as discussed. Sepsis Event Note - Focused Exam Vital Signs: Vital Signs Temp Pulse Resp BP Pulse Ox 09/25/19 12:52 97.0 F 91 16 126/74 93 L 09/25/19 12:19 93 130/74 09/25/19 11:49 89 145/89 H 09/25/19 11:28 84 16 97 09/25/19 11:11 97.6 F 117 H 18 141/98 H 96 Date Exam was Performed: 09/25/19 Time Exam was Performed: 20:25 - My Orders Last 24 Hours: My Active Orders 09/25/19 11:09 EKG Documentation Completion [RC] STAT - Assessment/Plan Last 24 Hours: My Active Orders 09/25/19 11:09 EKG Documentation Completion [RC] STAT
[2019-09-25 11:48] LABS: BLOOD UREA NITROGEN,BUN 13 mg/dL (7.0-18.0); CARBON DIOXIDE,CO2 25.4 mmol/L (21.0-32.0); CHLORIDE,CL 104 mmol/L (98-107); GLUCOSE RANDOM 126 mg/dL (74-106); POTASSIUM,K 4.1 mmol/L (3.5-5.1); SODIUM,NA 139 mmol/L (136-148)
--- NOTE | 2019-09-25 11:53 | CR ---
EXAM DATE: 09/25/19 PATIENT'S AGE: 28 Chest: Portable view of the chest was obtained. Comparison: Prior chest x-ray of 08/09/19. Heart size and mediastinum are normal. Lungs are clear. Bony structures are grossly intact. Impression: 1. Nothing acute is appreciated on portable chest x-ray. Diagnostic code #1 This report was dictated in Mountain Standard Time Report Signed by Proxy. [email or web address]
[2019-09-25 13:29] VITALS: BP 126/74; PULSE 91
== END 2019-09-25 12:57 | disposition home or self-care (01) ==
LOC: MW.ED 11:06 → MERGE 11:06 → MW.ED 12:57
DX: F19.10 Other psychoactive substance abuse, uncomplicated (principal); J45.909 Unspecified asthma, uncomplicated; E66.9 Obesity, unspecified; Z68.27 Body mass index [BMI] 27.0-27.9, adult; Z79.51 Long term (current) use of inhaled steroids
CPT/HCPCS: 36415; 71045; 80053; 82550; 84484; 85025; 93005; 96361; 96374; 96375; 99285; J2060; J2405; J7030; 99283

== ENCOUNTER 2019-11-30 20:56 | Emergency (ER) | payer SELFPAY ==
[2019-11-30] MEDS ORDERED: Sodium Chloride 0.9% 1,000 ML IV ONE (21:05)
--- NOTE | 2019-11-30 21:16 | EDM.PDOC ---
ED HPI GENERAL MEDICAL PROBLEM - General Chief Complaint: Drug or Alcohol Abuse Stated Complaint: CHEST PAIN UNABLE TO SEE Time Seen by Provider: 11/30/19 21:04 Source of Information: Reports: Patient - History of Present Illness INITIAL COMMENTS - FREE TEXT/NARRATIVE: The patient is a 29-year-old male with a history of alcohol and drug abuse who presents to the ER because he just is not feeling well. The patient states that he has not had anything over the last couple of days because he has been having intermittent dizziness which she describes as a lightheaded feeling and maybe some vertiginous sensation but mainly just lightheaded. He also states that he has been having intermittent abdominal pain that moves to different places in his abdomen. Sometimes it is in his upper abdomen on the right then it moves to the left, and currently it is in the right lower quadrant and it is a sharp stabbing pain that comes and goes. No nausea or vomiting, no chest pain or shortness of breath, but he feels like his heart is a regular. No other acute complaints at this time. Right Lower Abdomen Pain Score (Numeric/FACES): 9 - Related Data Allergies Allergy/AdvReac Type Severity Reaction Status Date / Time No Known Allergies Allergy Verified 11/30/19 21:02 Home Meds: Home Meds . [No Known Home Meds] 11/30/19 [History] Past Medical History HEENT History: Reports: Allergic Rhinitis Cardiovascular History: Reports: Hypertension Other Cardiovascular History: not on medication Respiratory History: Reports: Asthma (never tested, but likely) Gastrointestinal History: Reports: None, Pancreatitis Genitourinary History: Reports: None Musculoskeletal History: Reports: Fracture (C5) Other Musculoskeletal History: c5 fracture Neurological History: Reports: Concussion, Head Trauma Other Neuro History: c5 fracture Psychiatric History: Reports: Addiction, Anxiety, Depression Endocrine/Metabolic History: Reports: Obesity/BMI 30+ Hematologic History: Reports: None Immunologic History: Reports: None Oncologic (Cancer) History: Reports: None Dermatologic History: Reports: None - Infectious Disease History Infectious Disease History: Reports: None - Past Surgical History HEENT Surgical History: Reports: Myringotomy w Tube(s), None Neurological Surgical History: Reports: C-Spine, Other (See Below) Musculoskeletal Surgical History: Reports: Arthroscopic Knee, Other (See Below) Other Musculoskeletal Surgeries/Procedures:: ACL Social & Family History - Family History Family Medical History: Noncontributory Cardiac: Reports: [place], [place] Respiratory: Reports: Asthma - Caffeine Use Caffeine Use: Reports: None, Soda - Living Situation & Occupation Living situation: Reports: with Family, Single Occupation: Employed ([employer]) ED ROS GENERAL - Review of Systems Review Of Systems: See Below (Positive for lightheaded sensation, negative for chest pain, positive for palpitations, negative shortness of breath, positive for abdominal discomfort, all other Positives and pertinent negatives as per HPI. All other pertinent systems were reviewed and are negative) ED EXAM, DIZZINESS - Physical Exam Exam: See Below Text/Narrative:: Constitutional: No acute distress, Non-toxic appearance looks like he does not feel well HEENT.: Normocephalic, Atraumatic, PERRL, EOMI, External ears are atraumatic, Oropharynx clear and moist without lesions or masses, nares are patent without epistaxis Neck: Normal range of motion, Trachea Midline, No stridor Respiratory.: No respiratory distress, No tachypnea, Lungs Clear to Auscultation bilaterally without wheezes, rales, or rhonchi Cardiovascular.: Regular rate and Rhythm without murmurs, rubs, or gallops, good peripheral perfusion GI: Obese, abdomen soft and non tender, obese, no masses, no rebound, rigidity, or guarding Genital Urinary: Deferred Musculoskeletal: Good range of motion. All 4 extremities present and atraumatic , no edema Back: Full Range of Motion Skin: Warm, Dry, Color is ethnicity appropriate, No acute rash. Lymphatic: No lymphadenopathy noted Neurological: Alert, Awake and oriented x 3, No focal deficits noted appreciate , GCS 15 Psych: Affect, Judgement, mood normal Course - Vital Signs Text/Narrative:: Other than being slightly tachycardic, the patient's blood pressure is good, skin color is warm and dry without any signs of diaphoresis, unusual rashes, the patient does not have a headache, nothing to suggest intracranial hemorrhage , brain mass, hydrocephalus, sepsis, etc. Furthermore, during the stay the patient verbalized that he has used multiple pharmaceuticals prior to arrival. Lab work was unremarkable, d-dimer is negative and given that I am no longer concerned about a pulmonary embolism, and the patient is telling us that he feels like his heart is racing even though it is now in the 80s to low 90s with a normal blood pressure, etc. I feel that most of the patient symptomology can be explained by polypharmacy drug abuse and at this time I am not concerned about any organic emergencies. I talked to the patient in detail about getting help to stop using drugs and abusing alcohol and at this time he is stable for discharge and outpatient follow-up. His parents will pick him up. Last Recorded V/S: Last Vital Signs Temp 36.4 C 12/01/19 00:40 Pulse 96 12/01/19 00:40 Resp 18 12/01/19 00:40 BP 115/64 12/01/19 00:40 Pulse Ox 97 12/01/19 00:40 - Orders/Labs/Meds Orders: Active Orders 24 hr Category Date Time Status EKG Documentation Completion [RC] STAT Care 11/30/19 21:06 Active Labs: Laboratory Tests 11/30/19 11/30/19 11/30/19 Range/Units 21:05 21:05 21:05 WBC 9.25 (4.0-11.0) K/uL RBC 5.38 (4.50-5.90) M/uL Hgb 17.0 (13.0-17.0) g/dL Hct 49.3 (38.0-50.0) % MCV 91.6 (80.0-98.0) fL MCH 31.6 (27.0-32.0) pg MCHC 34.5 (31.0-37.0) g/dL RDW Std Deviation 41.5 (28.0-62.0) fl RDW Coeff of Som 12 (11.0-15.0) % Plt Count 255 (150-400) K/uL MPV 10.90 (7.40-12.00) fL Neut % (Auto) 54.5 (48.0-80.0) % Lymph % (Auto) 27.8 (16.0-40.0) % Rowan % (Auto) 13.1 (0.0-15.0) % Eos % (Auto) 4.3 (0.0-7.0) % Baso % (Auto) 0.3 (0.0-1.5) % Neut # (Auto) 5.0 (1.4-5.7) K/uL Lymph # (Auto) 2.6 H (0.6-2.4) K/uL Rowan # (Auto) 1.2 H (0.0-0.8) K/uL Eos # (Auto) 0.4 (0.0-0.7) K/uL Baso # (Auto) 0.0 (0.0-0.1) K/uL Nucleated RBC % 0.0 /100WBC Nucleated RBCs # 0 K/uL D-Dimer, Quantitative 0.19 (0.0-0.50) mg/L FEU Sodium 145 (136-148) mmol/L Potassium 4.4 (3.5-5.1) mmol/L Chloride 106 (98-107) mmol/L Carbon Dioxide 31.7 (21.0-32.0) mmol/L BUN 8 (7.0-18.0) mg/dL Creatinine 1.2 (0.8-1.3) mg/dL Est Cr Clr Drug Dosing 86.45 mL/min Estimated GFR (MDRD) > 60.0 ml/min Glucose 96 (74-106) mg/dL Calcium 9.7 (8.5-10.1) mg/dL Total Bilirubin 0.7 (0.2-1.0) mg/dL AST 21 (15-37) IU/L ALT 46 (14-63) IU/L Alkaline Phosphatase 55 (46-116) U/L Total Protein 7.9 (6.4-8.2) g/dL Albumin 3.8 (3.4-5.0) g/dL Globulin 4.1 H (2.6-4.0) g/dL Albumin/Globulin Ratio 0.9 (0.9-1.6) Meds: Medications Discontinued Medications Generic Name Dose Route Start Last Admin Trade Name Freq PRN Reason Stop Dose Admin Sodium Chloride 1,000 mls @ 999 mls/hr 11/30/19 21:05 11/30/19 21:12 Normal Saline IV 11/30/19 22:05 999 mls/hr BOLUS ONE Administration Departure - Departure Time of Disposition: 00:20 Disposition: Home, Self-Care 01 Clinical Impression: Dizziness, Polypharmacy - Discharge Information Instructions: Chemical Dependency Referrals: PCP,Unknown [Primary Care Provider] - Forms: ED Department Discharge Care Plan Goals: The following information is given to patients seen in the emergency department who are being discharged to home. This information is to outline your options for follow-up care. We provide all patients seen in our emergency department with a follow-up referral. The need for follow-up, as well as the timing and circumstances, are variable depending upon the specifics of your emergency department visit. If you don't have a primary care physician on staff, we will provide you with a referral. We always advise you to contact your personal physician following an emergency department visit to inform them of the circumstance of the visit and for follow-up with them and/or the need for any referrals to a consulting specialist. The emergency department will also refer you to a specialist when appropriate. This referral assures that you have the opportunity for follow-up care with a specialist. All of these measure are taken in an effort to provide you with optimal care, which includes your follow-up. Under all circumstances we always encourage you to contact your private physician who remains a resource for coordinating your care. When calling for follow-up care, please make the office aware that this follow-up is from your recent emergency room visit. If for any reason you are refused follow-up, please contact the [facility] at and asked to speak to the emergency department charge nurse. [facility] [address] [place] [id number] [address] [id number] Sepsis Event Note - Evaluation Sepsis Screening Result: No Definite Risk - Focused Exam Vital Signs: Vital Signs Temp Pulse Resp BP Pulse Ox 12/01/19 00:40 36.4 C 96 18 115/64 97 11/30/19 23:57 92 119/79 98 11/30/19 22:00 97 18 131/99 H 97 11/30/19 21:02 36.7 C 111 H 20 138/85 99 Date Exam was Performed: 12/01/19 Time Exam was Performed: 05:04 - My Orders Last 24 Hours: My Active Orders 11/30/19 21:06 EKG Documentation Completion [RC] STAT - Assessment/Plan Last 24 Hours: My Active Orders 11/30/19 21:06 EKG Documentation Completion [RC] STAT
[2019-11-30 21:35] LABS: BLOOD UREA NITROGEN,BUN 8 mg/dL (7.0-18.0); CARBON DIOXIDE,CO2 31.7 mmol/L (21.0-32.0); CHLORIDE,CL 106 mmol/L (98-107); GLUCOSE RANDOM 96 mg/dL (74-106); POTASSIUM,K 4.4 mmol/L (3.5-5.1); SODIUM,NA 145 mmol/L (136-148)
[2019-12-01 00:45] VITALS: BP 115/64; PULSE 96
== END 2019-12-01 00:40 | disposition home or self-care (01) ==
LOC: MW.ED 20:56
DX: R42 Dizziness and giddiness (principal); I10 Essential (primary) hypertension; E66.9 Obesity, unspecified; Z79.899 Other long term (current) drug therapy
CPT/HCPCS: 36415; 80053; 85025; 85379; 93005; 96360; 96361; 99284; J7030; 99283

== ENCOUNTER 2020-05-23 04:14 | Emergency (ER) | payer SELFPAY ==
[2020-05-23] MEDS ORDERED: Acetaminophen/oxyCODONE 325-5 MG Tab PO ONE (04:35)
[2020-05-23] MEDS ORDERED: Ibuprofen 600 MG Tab PO ONE (04:35)
[2020-05-23] MEDS ORDERED: Amoxicillin/Clavulanate K 875-125 MG Tab PO ONE (04:35)
--- NOTE | 2020-05-23 04:41 | EDM.PDOC ---
ED HPI GENERAL MEDICAL PROBLEM - General Chief Complaint: ENT Problem Stated Complaint: INFECTED TOOTH Time Seen by Provider: 05/23/20 04:18 Source of Information: Reports: Patient History Limitations: Reports: No Limitations - History of Present Illness INITIAL COMMENTS - FREE TEXT/NARRATIVE: 29M presents for L lower molar infected tooth. Notes h/o similar in past. Has been painful for a while but acutely worsening over last few days. Today started with swelling and voice change. No SOB or throat swelling sensation. No fevers but felt dizzy lower L tooth Pain Score (Numeric/FACES): 9 - Related Data Allergies Allergy/AdvReac Type Severity Reaction Status Date / Time No Known Allergies Allergy Verified 11/30/19 21:02 Home Meds: Home Meds . [No Known Home Meds] 11/30/19 [History] Past Medical History HEENT History: Reports: Allergic Rhinitis Cardiovascular History: Reports: Hypertension Other Cardiovascular History: not on medication Respiratory History: Reports: Asthma (never tested, but likely) Gastrointestinal History: Reports: None, Pancreatitis Genitourinary History: Reports: None Musculoskeletal History: Reports: Fracture (C5) Other Musculoskeletal History: c5 fracture Neurological History: Reports: Concussion, Head Trauma Other Neuro History: c5 fracture Psychiatric History: Reports: Addiction, Anxiety, Depression Endocrine/Metabolic History: Reports: Obesity/BMI 30+ Hematologic History: Reports: None Immunologic History: Reports: None Oncologic (Cancer) History: Reports: None Dermatologic History: Reports: None - Infectious Disease History Infectious Disease History: Reports: None - Past Surgical History HEENT Surgical History: Reports: Myringotomy w Tube(s), None Neurological Surgical History: Reports: C-Spine, Other (See Below) Musculoskeletal Surgical History: Reports: Arthroscopic Knee, Other (See Below) Other Musculoskeletal Surgeries/Procedures:: ACL Social & Family History - Family History Family Medical History: Noncontributory Cardiac: Reports: [place], [place] Respiratory: Reports: Asthma - Caffeine Use Caffeine Use: Reports: None, Soda - Living Situation & Occupation Living situation: Reports: with Family, Single Occupation: Employed ([employer]) ED ROS ENT - Review of Systems Review Of Systems: See Below ED EXAM, ENT - Physical Exam Exam: See Below Exam Limited By: No Limitations General Appearance: Alert, WD/WN, No Apparent Distress Mouth/Throat: Normal Inspection, Other (poor dentition, erythema of posterior L bottom gums) Head: Atraumatic, Normocephalic Neck: Normal Inspection, Non-Tender Respiratory/Chest: No Respiratory Distress Extremities: Normal Inspection Neurological: Alert, Oriented Psychiatric: Normal Affect, Normal Mood Skin: Warm, Dry Course - Vital Signs Last Recorded V/S: Last Vital Signs Temp 97.0 F 05/23/20 04:28 Pulse 102 H 05/23/20 04:28 Resp 16 05/23/20 04:28 BP 152/102 H 05/23/20 04:28 Pulse Ox 99 05/23/20 04:28 - Orders/Labs/Meds Orders: Active Orders 24 hr Category Date Time Status Acetaminophen/oxyCODONE [Percocet 325-5 MG] Med 05/23/20 04:35 Once 1 tab PO ONETIME ONE Amoxicillin/Clavulanate K [Augmentin 875 MG/125 MG] Med 05/23/20 04:35 Once 1 tab PO ONETIME ONE Ibuprofen [Motrin] Med 05/23/20 04:35 Once 600 mg PO ONETIME ONE - Re-Assessments/Exams Free Text/Narrative Re-Assessment/Exam: 05/23/20 04:39 will give augmentin/percocet/motrin. Will d/c with same. Will give dental f/u for Sunday Departure - Departure Time of Disposition: 04:40 Disposition: Home, Self-Care 01 Condition: Good Clinical Impression: Dental abscess - Discharge Information Instructions: Dental Abscess, [id number] Referrals: PCP,None [Primary Care Provider] - Additional Instructions: The following information is given to patients seen in the emergency department who are being discharged to home. This information is to outline your options for follow-up care. We provide all patients seen in our emergency department with a follow-up referral. The need for follow-up, as well as the timing and circumstances, are variable depending upon the specifics of your emergency department visit. If you don't have a primary care physician on staff, we will provide you with a referral. We always advise you to contact your personal physician following an emergency department visit to inform them of the circumstance of the visit and for follow-up with them and/or the need for any referrals to a consulting specialist. The emergency department will also refer you to a specialist when appropriate. This referral assures that you have the opportunity for follow-up care with a specialist. All of these measure are taken in an effort to provide you with optimal care, which includes your follow-up. Under all circumstances we always encourage you to contact your private physician who remains a resource for coordinating your care. When calling for follow-up care, please make the office aware that this follow-up is from your recent emergency room visit. If for any reason you are refused follow-up, please contact the [facility] Emergency Department at and asked to speak to the emergency department charge nurse. Sepsis Event Note (ED) - Evaluation Sepsis Screening Result: No Definite Risk - Focused Exam Vital Signs: Vital Signs Temp Pulse Resp BP Pulse Ox 05/23/20 04:28 97.0 F 102 H 16 152/102 H 99 - My Orders Last 24 Hours: My Active Orders 05/23/20 04:35 Acetaminophen/oxyCODONE [Percocet 325-5 MG] 1 tab PO ONETIME ONE Amoxicillin/Clavulanate K [Augmentin 875 MG/125 MG] 1 tab PO ONETIME ONE Ibuprofen [Motrin] 600 mg PO ONETIME ONE - Assessment/Plan Last 24 Hours: My Active Orders 05/23/20 04:35 Acetaminophen/oxyCODONE [Percocet 325-5 MG] 1 tab PO ONETIME ONE Amoxicillin/Clavulanate K [Augmentin 875 MG/125 MG] 1 tab PO ONETIME ONE Ibuprofen [Motrin] 600 mg PO ONETIME ONE
[2020-05-23] MEDS ORDERED: Sodium Chloride 0.9% 1,000 ML IV ONE (04:53)
--- NOTE | 2020-05-23 05:28 | CR ---
INDICATION: Chest pain. Tooth infection TECHNIQUE: Chest radiograph 1 view COMPARISON: None FINDINGS: Mediastinum: The mediastinum is normal in appearance. The heart silhouette is normal in size and morphology. Lung: Both lungs are unremarkable in appearance. No sign of pleural effusion seen. No pneumothorax is identified. Bone and Soft tissue: Unremarkable for age. IMPRESSION: 1. No acute cardiopulmonary disease is seen. Dictated by: Pedro Casey MD @ 05/23/2020 05:28:22 (Electronically Signed)
[2020-05-23 05:34] LABS: BLOOD UREA NITROGEN,BUN 16 mg/dL (7.0-18.0); CARBON DIOXIDE,CO2 28.8 mmol/L (21.0-32.0); CHLORIDE,CL 102 mmol/L (98-107); GLUCOSE RANDOM 117 mg/dL (74-106); POTASSIUM,K 3.8 mmol/L (3.5-5.1); SODIUM,NA 138 mmol/L (136-148)
[2020-05-23] MEDS ORDERED: Clindamycin Phosphate in D5W 50 ML IV ONE (06:07)
[2020-05-23] MEDS ORDERED: Clindamycin Phosphate in D5W 300 MG in Premix Bag 1 BAG IV ONE ×2 (06:10)
[2020-05-23 06:16] VITALS: BP 142/85; PULSE 91
== END 2020-05-23 06:33 | disposition home or self-care (01) ==
LOC: MW.ED 04:14
DX: K04.7 Periapical abscess without sinus (principal); I10 Essential (primary) hypertension; J45.909 Unspecified asthma, uncomplicated; E66.9 Obesity, unspecified
CPT/HCPCS: 36415; 71045; 80048; 80305; 81003; 84484; 85025; 87040; 93005; 96361; 96374; 99284; A9270; J3490; J7030

== ENCOUNTER 2020-05-25 17:23 | Emergency (ER) | payer SELFPAY ==
[2020-05-25] MEDS ORDERED: Sodium Chloride 0.9% 2.5 ML Syringe FLUSH PRN (18:20)
[2020-05-25] MEDS ORDERED: Sodium Chloride 0.9% 10 ML Syringe FLUSH PRN (18:20)
[2020-05-25] MEDS ORDERED: Alum Hydrox/Mag Hydrox/Simeth 15 ML, Lidocaine 2% 5 ML PO ONE ×2 (18:22)
[2020-05-25] MEDS ORDERED: Haloperidol Lactate 5 MG/ML SDV IM ONE (18:22)
[2020-05-25] MEDS ORDERED: Lactated Ringers 1,000 ML IV ONE (18:23)
--- NOTE | 2020-05-25 18:29 | EDM.PDOC ---
<Rikki Nix - Last Filed: 05/25/20 19:47> ED HPI GENERAL MEDICAL PROBLEM - General Chief Complaint: Abdominal Pain Stated Complaint: CHEST PAIN Time Seen by Provider: 05/25/20 17:59 Source of Information: Reports: Patient, Old Records History Limitations: Reports: No Limitations - History of Present Illness INITIAL COMMENTS - FREE TEXT/NARRATIVE: 29-year-old male with a past medical history of depression, asthma, hypertension, cocaine and methamphetamine use presenting with multiple complaints. Patient ports the onset of substernal chest pain approximately 4 hours ago while at rest. He describes chest pressure radiating to left shoulder. States symptoms have been constant since the onset. Accompanied by nausea, no vomiting. Nothing makes pain better or worse. States he was recently treated for a dental infection and now complains of numbness from the left side of his maxilla down to his lower abdomen/pelvis. He also complains of a "rumbling "feeling in his stomach and feels like it is gurgling and this is concerning to him. He denies any outright abdominal pain. No self treatment prior to arrival. Denies emesis, diaphoresis, cough, hemoptysis, fever, diarrhea, rectal bleeding, hematemesis. Last used oxycodone yesterday, cocaine about 5 days ago. Denies any drug use today. Denies any recent methamphetamine use. ROS: A 10-point review of systems was negative, except as noted in the HPI (or in the ROS section of this note). Past medical history: Reviewed, no additional pertinent history. Surgical history: Reviewed in system, no additional pertinent history. Social history: Reviewed in system, no additional pertinent history. Family history: Reviewed in system, no additional pertinent history. PHYSICAL EXAM Vital signs reviewed. Nursing notes reviewed. Constitutional: Awake, alert, non-distressed. Head: Normocephalic, atraumatic. Eyes: EOMI, conjunctiva normal, no discharge, no scleral icterus. Ears, Nose, Throat: External ears and nose normal, moist oral mucosa. Cardiovascular: Tachycardic, 2+ radial pulse, capillary refill less than 2 seconds. RRR no MRG Pulmonary: normal work of breathing, no accessory muscle use. CTA BL. Abdomen/GI: Soft, nontender, nondistended, no guarding or rigidity, no masses. Musculoskeletal: No deformities. Integumentary: Appropriate color for ethnicity, warm, dry, no pallor or jaundice, no rash. Neurologic: Awake, alert, and oriented x3. Cranial nerves II through XII intact. No facial droop or dysarthria. Supple neck. No pronator drift. Normal [id number] and zzuu-[id number]. No dysdiadochokinesia. 5/5 strength in all extremities. Sensation intact to light touch x4. Psychiatric: Appropriate mood and affect, normal thought process. left arm Pain Score (Numeric/FACES): 7 - Related Data Allergies Allergy/AdvReac Type Severity Reaction Status Date / Time No Known Allergies Allergy Verified 05/25/20 17:28 Home Meds: Home Meds Acetaminophen/oxyCODONE [Percocet 325-5 MG] 1 tab PO Q4H PRN 3 Days #18 tab 05/23/20 [Rx] Amoxicillin/Clavulanate K [Augmentin 875-125 MG] 1 tab PO BID 7 Days #14 tablet 05/23/20 [Rx] Fluticasone Propion/Salmeterol [Advair 250-50 Diskus] 1 puff INH BID 05/23/20 [History] Ibuprofen [Motrin] 600 mg PO Q6H PRN 7 Days #28 tab 05/23/20 [Rx] Past Medical History HEENT History: Reports: Allergic Rhinitis Cardiovascular History: Reports: Hypertension Other Cardiovascular History: not on medication Respiratory History: Reports: Asthma Gastrointestinal History: Reports: None, Pancreatitis Genitourinary History: Reports: None Musculoskeletal History: Reports: Fracture Other Musculoskeletal History: c5 fracture Neurological History: Reports: Concussion, Head Trauma Other Neuro History: c5 fracture Psychiatric History: Reports: Addiction, Anxiety, Depression Endocrine/Metabolic History: Reports: Obesity/BMI 30+ Hematologic History: Reports: None Immunologic History: Reports: None Oncologic (Cancer) History: Reports: None Dermatologic History: Reports: None - Infectious Disease History Infectious Disease History: Reports: Chicken Pox - Past Surgical History Head Surgeries/Procedures: Reports: None HEENT Surgical History: Reports: Myringotomy w Tube(s), None Neurological Surgical History: Reports: C-Spine, Other (See Below) Musculoskeletal Surgical History: Reports: Arthroscopic Knee, Other (See Below) Other Musculoskeletal Surgeries/Procedures:: ACL Social & Family History - Family History Family Medical History: Noncontributory Cardiac: Reports: [place], [place] Respiratory: Reports: Asthma - Caffeine Use Caffeine Use: Reports: None, Soda - Living Situation & Occupation Living situation: Reports: with Family, Single Occupation: Employed (Site watch) ED ROS GENERAL - Review of Systems Review Of Systems: See Below ED EXAM, GENERAL - Physical Exam Exam: See Below EKG INTERPRETATION EKG Interpretation Comments: 12-Lead ECG Interpretation Acquired: 5:25 PM Rhythm: Sinus tachycardia Rate: 104 bpm Mckenzie: Right axis deviation Intervals: Normal Ectopy: None Ischemic Changes: None apparent RV Strain: No obvious RV strain pattern. ST Segments/T-Waves: T wave inversions in leads III, aVF Interpretation: Abnormal ECG Course - Vital Signs Text/Narrative:: Patient hemodynamically stable, afebrile, well-appearing, looks nontoxic. Differential diagnosis includes but is not limited to: acute coronary syndrome, pulmonary embolism, thoracic aortic dissection, atypical chest pain, GERD, Boerhaave syndrome, gastritis, pancreatitis, hepatitis, nonspecific abdominal pain, drug or alcohol use, paresthesias, etc. Initial VS mildly tachycardic and hypertensive. IV access established. Ordered IV fluids, GI cocktail, haloperidol. Labs ordered: CBC, CMP, troponin, lipase, D-dimer. Neuro exam reassuring - distribution of numbness does not anataomically make sense for CVA/TIA. Abdomen soft and nontender. Remained in the ED through the end of my shift - Dr. Perrin will follow up on labs and symptoms. Refer to his note for the disposition. Departure - Departure Time of Disposition: 19:00 Disposition: Eloped 07 Clinical Impression: Polysubstance abuse Chest pain Qualifiers: Chest pain type: unspecified Qualified Code(s): R07.9 - Chest pain, unspecified Referrals: PCP,None [Primary Care Provider] - Forms: Refusal of Exam and Treatment Sepsis Event Note (ED) - Evaluation Sepsis Screening Result: No Definite Risk <Ketan Perrin - Last Filed: 05/25/20 20:02> Course - Vital Signs Last Recorded V/S: Last Vital Signs Temp 98.5 F 05/25/20 17:25 Pulse 91 05/25/20 19:24 Resp 18 05/25/20 19:24 BP 150/86 H 05/25/20 19:24 Pulse Ox 96 05/25/20 19:24 - Orders/Labs/Meds Orders: Active Orders 24 hr Category Date Time Status Cardiac Monitoring [RC] . DIRECTED Care 05/25/20 18:20 Active Pulse Oximetry [RC] ASDIRECTED Care 05/25/20 18:20 Active Sodium Chloride 0.9% [Saline Flush] Med 05/25/20 18:20 Active 10 ml FLUSH ASDIRECTED PRN Sodium Chloride 0.9% [Saline Flush] Med 05/25/20 18:20 Active 2.5 ml FLUSH ASDIRECTED PRN Saline Lock Insert [OM.PC] Stat Oth 05/25/20 18:21 Ordered Medication Orders Sodium Chloride (Saline Flush) 2.5 ml FLUSH ASDIRECTED PRN PRN Reason: Keep Vein Open Last Admin: 05/25/20 19:24 Dose: 2.5 ml Documented by: UNIQUE Sodium Chloride (Saline Flush) 10 ml FLUSH ASDIRECTED PRN PRN Reason: Keep Vein Open Last Admin: 05/25/20 19:24 Dose: 10 ml Documented by: UNIQUE Labs: Laboratory Tests 05/25/20 05/25/20 05/25/20 Range/Units 18:11 18:11 18:11 WBC 11.14 H (4.0-11.0) K/uL RBC 5.30 (4.50-5.90) M/uL Hgb 16.3 (13.0-17.0) g/dL Hct 49.0 (38.0-50.0) % MCV 92.5 (80.0-98.0) fL MCH 30.8 (27.0-32.0) pg MCHC 33.3 (31.0-37.0) g/dL RDW Std Deviation 40.6 (28.0-62.0) fl RDW Coeff of Som 12 (11.0-15.0) % Plt Count 231 (150-400) K/uL MPV 10.80 (7.40-12.00) fL Neut % (Auto) 61.9 (48.0-80.0) % Lymph % (Auto) 22.4 (16.0-40.0) % Sebastian % (Auto) 9.3 (0.0-15.0) % Eos % (Auto) 6.2 (0.0-7.0) % Baso % (Auto) 0.2 (0.0-1.5) % Neut # (Auto) 6.9 H (1.4-5.7) K/uL Lymph # (Auto) 2.5 H (0.6-2.4) K/uL Sebastian # (Auto) 1.0 H (0.0-0.8) K/uL Eos # (Auto) 0.7 (0.0-0.7) K/uL Baso # (Auto) 0.0 (0.0-0.1) K/uL Nucleated RBC % 0.0 /100WBC Nucleated RBCs # 0 K/uL D-Dimer, Quantitative < 0.19 (0.0-0.50) mg/L FEU Sodium 139 (136-148) mmol/L Potassium 4.0 (3.5-5.1) mmol/L Chloride 101 (98-107) mmol/L Carbon Dioxide 28.0 (21.0-32.0) mmol/L BUN 18 (7.0-18.0) mg/dL Creatinine 1.0 (0.8-1.3) mg/dL Est Cr Clr Drug Dosing 103.74 mL/min Estimated GFR (MDRD) > 60.0 ml/min Glucose 111 H (74-106) mg/dL Calcium 9.2 (8.5-10.1) mg/dL Total Bilirubin 0.5 (0.2-1.0) mg/dL AST 28 (15-37) IU/L ALT 51 (14-63) IU/L Alkaline Phosphatase 53 (46-116) U/L Troponin I < 0.050 (0.000-0.056) ng/mL Total Protein 8.4 H (6.4-8.2) g/dL Albumin 4.2 (3.4-5.0) g/dL Globulin 4.2 H (2.6-4.0) g/dL Albumin/Globulin Ratio 1.0 (0.9-1.6) Lipase 55 L (73-393) U/L Meds: Medications Generic Name Dose Route Start Last Admin Trade Name Freq PRN Reason Stop Dose Admin Sodium Chloride 2.5 ml 05/25/20 18:20 05/25/20 19:24 Saline Flush FLUSH 2.5 ml ASDIRECTED PRN Administration Keep Vein Open Sodium Chloride 10 ml 05/25/20 18:20 05/25/20 19:24 Saline Flush FLUSH 10 ml ASDIRECTED PRN Administration Keep Vein Open Discontinued Medications Generic Name Dose Route Start Last Admin Trade Name Freq PRN Reason Stop Dose Admin Al Hydroxide/Mg Hydroxide 15 0 ml 05/25/20 18:22 05/25/20 18:46 ml/ Lidocaine HCl 5 ml PO 05/25/20 18:23 20 each ONETIME ONE Administration Haloperidol Lactate 2.5 mg 05/25/20 18:22 05/25/20 18:46 Haldol IM 05/25/20 18:23 2.5 mg ONETIME ONE Administration Lactated Ringer's 1,000 mls @ 999 mls/hr 05/25/20 18:23 05/25/20 18:45 Ringers, Lactated IV 05/25/20 19:23 999 mls/hr .BOLUS ONE Administration - Re-Assessments/Exams Free Text/Narrative Re-Assessment/Exam: 05/25/20 19:[address] Nix at 8 PM. This is a 29-year-old who presents the ED today with multiple complaints as above. Was informed by the nurse and warehouse forklift operator that patient pulled out his own IV and stormed out of the ER refusing to wait for my reevaluation and discussion regarding his options for his health care. Sepsis Event Note (ED) - Focused Exam Vital Signs: Vital Signs Temp Pulse Resp BP Pulse Ox 05/25/20 19:24 91 18 150/86 H 96 05/25/20 17:25 98.5 F 105 H 16 168/91 H 96
[2020-05-25 18:53] LABS: BLOOD UREA NITROGEN,BUN 18 mg/dL (7.0-18.0); CHLORIDE,CL 101 mmol/L (98-107); GLUCOSE RANDOM 111 mg/dL (74-106); LIPASE 55 U/L (73-393); SODIUM,NA 139 mmol/L (136-148)
--- NOTE | 2020-05-25 19:05 | CR ---
Chest: 2 views of the chest were obtained. Comparison: Prior chest x-ray of 05/23/20. Heart size and mediastinum are normal. Lungs are clear. No discrete bony abnormality is appreciated. Impression: 1. Nothing acute is appreciated on 2 view chest x-ray. Diagnostic code #1 Study was dictated in MDT
[2020-05-25 19:25] VITALS: BP 150/86; PULSE 91
== END 2020-05-25 19:58 | disposition left against medical advice (07) ==
LOC: MW.ED 17:23
DX: R07.2 Precordial pain (principal); F19.10 Other psychoactive substance abuse, uncomplicated; R00.0 Tachycardia, unspecified; I10 Essential (primary) hypertension; J45.909 Unspecified asthma, uncomplicated; E66.9 Obesity, unspecified; Z68.41 Body mass index [BMI] 40.0-44.9, adult; R94.31 Abnormal electrocardiogram [ECG] [EKG]; Z79.899 Other long term (current) drug therapy
CPT/HCPCS: 36415; 71046; 80053; 83690; 84484; 85025; 85379; 93005; 96372; 99285; A9270; J1630; J7120; 99283

== ENCOUNTER 2020-06-02 13:44 | Emergency (ER) | payer SELFPAY ==
[2020-06-02] MEDS ORDERED: Lidocaine 2% Viscous Solution 15 ML Cup PO ONE (14:08)
[2020-06-02] MEDS ORDERED: Benzocaine 20% Topical Spray UD MUCMEM ONE (14:08)
--- NOTE | 2020-06-02 14:17 | EDM.PDOC ---
ED HPI GENERAL MEDICAL PROBLEM - General Chief Complaint: General Stated Complaint: NUMBESS IN BODY VOMITING Time Seen by Provider: 06/02/20 13:46 Source of Information: Reports: Patient History Limitations: Reports: No Limitations - History of Present Illness INITIAL COMMENTS - FREE TEXT/NARRATIVE: HISTORY AND PHYSICAL: History of present illness: Patient is a 29 year old male who presents to the ED today with concern of dental pain that has been ongoing for several weeks. Patient states that he used up all of the prior antibiotics he was given but continues to have pus d rained from his tooth, cheek, gums, and tongue according to patient. Patient states that he uses drugs and has smoked oxycodone today which does make him feel nauseous. Patient states that he was instructed at his last visit to follow-up with dentist but he chose not to do this because there were no available appointments that fit his schedule according to patient. Patient states he made an appointment in [place] to get in with a dentist but does not think he can go to this appointment tomorrow because he feels nauseous. Patient denies any other symptoms or concerns. Patient denies fever, chills, chest pain, shortness of breath, or cough. Denies headache, neck stiff ness, change in vision, syncope, or near syncope. Denies nausea, vomiting, abdominal pain, diarrhea, constipation, or dysuria. Has not noted any blood in urine or stool. Patient has been eating and drinking appropriately. Review of systems: As per history of present illness and below otherwise all systems reviewed and n egative. Past medical history: As per history of present illness and as reviewed below otherwise noncontributory. Surgical history: As per history of present illness and as reviewed below otherwise noncontributory. Social history: See social history for further information Family history: As per history of present illness and as reviewed below otherwise noncontributory. Physical exam: General: Patient is alert, oriented, and in no acute distress. Patient sitting comfortably on exam table. HEENT: Tooth #17 is cracked and eroded to the gumline. There is surrounding gumline is mildly edematous without any obvious drainable abscess. I do not see any pus drainage of the entire mouth. Generalized poor dentition. Atraumatic, normocephalic, pupils equal and reactive bilaterally, negative for conjunctival pallor or scleral icterus, mucous membranes moist, TMs normal bilaterally, throat clear, neck supple, nontender, trachea midline. No drooling or trismus noted. No meningeal signs. No hot potato voice noted. Lungs: Clear to auscultation, breath sounds equal bilaterally, chest nontender. Heart: S1S2, regular rate and rhythm without overt murmur Abdomen: Soft, nondistended, nontender. Negative for masses or hepatosplenomegaly. Negative for costovertebral tenderness. Pelvis: Stable nontender. Genitourinary: Deferred. Rectal: Deferred. Skin: Intact, warm, dry. No lesions or rashes noted. Extremities: Atraumatic, negative for cords or calf pain. Neurovascular unremarkable. Neuro: Awake, alert, oriented. Cranial nerves II through XII unremarkable. Cerebellum unremarkable. Motor and sensory unremarkable throughout. Exam nonfocal. Notes: Discussed the importance for follow up with a dentist for definitive treatment. Voices understanding and is agreeable to plan of care. Denies any further questions or concerns at this time. Diagnostics: None Therapeutics: Dental balls Prescription: Clindamycin Impression: Tooth fracture Plan: 1. Please take medication as prescribed. 2. Tylenol and/or ibuprofen as directed and as needed for pain management. 3. "Tooth Balls" have been given to you; apply along the gumline every 2-3 hours as needed. Do not swallow these; external use only. 4. Follow-up with a dentist for definitive care. Dentist information has been provided to you to call and establish an appointment time. Return to the ED as needed and as discussed. Definitive disposition and diagnosis as appropriate pending reevaluation and review of above. chest Pain Score (Numeric/FACES): 8 - Related Data Allergies Allergy/AdvReac Type Severity Reaction Status Date / Time No Known Allergies Allergy Verified 06/02/20 13:50 Home Meds: Home Meds Acetaminophen/oxyCODONE [Percocet 325-5 MG] 1 tab PO Q4H PRN 3 Days #18 tab 05/23/20 [Rx] Amoxicillin/Clavulanate K [Augmentin 875-125 MG] 1 tab PO BID 7 Days #14 tablet 05/23/20 [Rx] Fluticasone Propion/Salmeterol [Advair 250-50 Diskus] 1 puff INH BID 05/23/20 [History] Ibuprofen [Motrin] 600 mg PO Q6H PRN 7 Days #28 tab 05/23/20 [Rx] Clindamycin HCl 300 mg PO TID 7 Days #30 capsule 06/02/20 [Rx] Past Medical History HEENT History: Reports: Allergic Rhinitis Cardiovascular History: Reports: Hypertension Other Cardiovascular History: not on medication Respiratory History: Reports: Asthma Gastrointestinal History: Reports: None, Pancreatitis Genitourinary History: Reports: None Musculoskeletal History: Reports: Fracture Other Musculoskeletal History: c5 fracture Neurological History: Reports: Concussion, Head Trauma Other Neuro History: c5 fracture Psychiatric History: Reports: Addiction, Anxiety, Depression Endocrine/Metabolic History: Reports: Obesity/BMI 30+ Hematologic History: Reports: None Immunologic History: Reports: None Oncologic (Cancer) History: Reports: None Dermatologic History: Reports: None - Infectious Disease History Infectious Disease History: Reports: None - Past Surgical History Head Surgeries/Procedures: Reports: None HEENT Surgical History: Reports: Myringotomy w Tube(s), None Cardiovascular Surgical History: Reports: None Respiratory Surgical History: Reports: None GI Surgical History: Reports: None Male Surgical History: Reports: None Endocrine Surgical History: Reports: None Neurological Surgical History: Reports: C-Spine, Other (See Below) Musculoskeletal Surgical History: Reports: Arthroscopic Knee, Other (See Below) Other Musculoskeletal Surgeries/Procedures:: ACL Social & Family History - Family History Family Medical History: Noncontributory Cardiac: Reports: [place], [place] Respiratory: Reports: Asthma - Tobacco Use Smoking Status *Q: Current Every Day Smoker Years of Tobacco use: 5 Packs/Tins Daily: 1 - Caffeine Use Caffeine Use: Reports: None - Recreational Drug Use Recreational Drug Use: Yes Recreational Drug Type: Reports: Oxycodone Recreational Drug Use Frequency: Daily - Living Situation & Occupation Living situation: Reports: with Family, Single Occupation: Employed (Site watch) ED ROS GENERAL - Review of Systems Review Of Systems: Comprehensive ROS is negative, except as noted in HPI. ED EXAM, GENERAL - Physical Exam Exam: See Below (see dictation) Course - Vital Signs Last Recorded V/S: Last Vital Signs Temp 97.4 F 06/02/20 13:51 Pulse 112 H 06/02/20 13:51 Resp 18 06/02/20 13:51 BP 153/99 H 06/02/20 13:51 Pulse Ox 95 06/02/20 13:51 Departure - Departure Time of Disposition: 14:17 Disposition: Home, Self-Care 01 Clinical Impression: Tooth fracture Qualifiers: Encounter type: initial encounter Fracture type: closed Qualified Code(s): S02.5XXA - Fracture of tooth (traumatic), initial encounter for closed fracture - Discharge Information Prescriptions: Clindamycin HCl 300 mg PO TID 7 Days #30 capsule Referrals: PCP,None [Primary Care Provider] - Additional Instructions: The following information is given to patients seen in the emergency department who are being discharged to home. This information is to outline your options for follow-up care. We provide all patients seen in our emergency department with a follow-up referral. The need for follow-up, as well as the timing and circumstances, are variable depending upon the specifics of your emergency department visit. If you don't have a primary care physician on staff, we will provide you with a referral. We always advise you to contact your personal physician following an emergency department visit to inform them of the circumstance of the visit and for follow-up with them and/or the need for any referrals to a consulting specialist. The emergency department will also refer you to a specialist when appropriate. This referral assures that you have the opportunity for follow-up care with a specialist. All of these measure are taken in an effort to provide you with optimal care, which includes your follow-up. Under all circumstances we always encourage you to contact your private physician who remains a resource for coordinating your care. When calling for follow-up care, please make the office aware that this follow-up is from your recent emergency room visit. If for any reason you are refused follow-up, please contact the [facility] Emergency Department at and asked to speak to the emergency department charge nurse. [facility] [address] [place] [id number] [id number] 1. Please take medication as prescribed. 2. Tylenol and/or ibuprofen as directed and as needed for pain management. 3. "Tooth Balls" have been given to you; apply along the gumline every 2-3 hours as needed. Do not swallow these; external use only. 4. Follow-up with a dentist for definitive care. Dentist information has been provided to you to call and establish an appointment time. Return to the ED as needed and as discussed. Sepsis Event Note (ED) - Evaluation Sepsis Screening Result: No Definite Risk - Focused Exam Vital Signs: Vital Signs Temp Pulse Resp BP Pulse Ox 06/02/20 13:51 97.4 F 112 H 18 153/99 H 95
[2020-06-02 15:06] VITALS: BP 148/86; PULSE 105
== END 2020-06-02 15:06 | disposition home or self-care (01) ==
LOC: MW.ED 13:44
DX: K03.81 Cracked tooth (principal); K00.7 Teething syndrome; I10 Essential (primary) hypertension; J45.909 Unspecified asthma, uncomplicated; E66.9 Obesity, unspecified; Z68.38 Body mass index [BMI] 38.0-38.9, adult; F17.210 Nicotine dependence, cigarettes, uncomplicated; Z79.899 Other long term (current) drug therapy
CPT/HCPCS: 93005; 99283; A9270; 99282